=== PATIENT | female | born 1990 | race Caucasian/White ===

== ENCOUNTER 2018-01-24 21:00 | Inpatient (IN) | payer MEDICAID ==
[2018-01-24] MEDS ORDERED: buPROPion 150 MG Tab.SR PO SCH (23:45)
[2018-01-25] MEDS ORDERED: Acetaminophen 325 MG Tab PO PRN (00:01)
[2018-01-25] MEDS ORDERED: Nalbuphine 20 MG/1 ML Amp IVPUSH PRN (00:01)
[2018-01-25] MEDS ORDERED: Ondansetron 4 MG/2 ML SDV IVPUSH PRN (00:01)
[2018-01-25] MEDS ORDERED: Sodium Chloride 0.9% 10 ML Syringe FLUSH PRN (00:01)
[2018-01-25] MEDS ORDERED: Oxytocin/Lactated Ringers 10 UNIT/1,000 ML BAG IV SCH ×3 (00:01→10:53)
--- NOTE | 2018-01-25 00:10 | PCM.LDHP ---
L&D History of Present Illness - General Date of Service: 01/24/18 Admit Problem/Dx: Patient Status Order with Admit Dx/Problem 01/24/18 22:47 Patient Status [ADT] Routine Admission Diagnosis/Problem Admission Diagnosis/Problem Spontaneous rupture of amniotic membranes Source of Information: Patient History Limitations: Reports: No Limitations - History of Present Illness Introduction:: Mariel Costello is a 27 year old at 38 weeks 4 days by 7 week U/S who presents for evaluation for possible rupture of membranes. She reports that she had a large gush of fluid when she was walking around [facility] at approximately 2 PM. She reports that it was enough that she had to change her clothing and then changed her underwear several times as the fluid continued to leak. She reported that she would go to the bathroom and would void but even despite emptying her bladder she continued to have leaking of fluid. She reports that she has had irregular contractions with only several contractions since she thinks that her water broke this afternoon. She has had several episodes of regular contractions that were determined to be false labor over the last several days. She was last seen on the unit on 01/23/2018 and was told that her cervix was dilated to 2 cm at that visits. She reports good movement. She denies any fevers or chills. Denies any abdominal tenderness. Timing/Duration: Reports: sudden onset (With large gush of fluid vaginally), intermittent (Contractions but not regular or able to time between contractions) Location, : Reports: Lower back Quality: Reports: Pressure Severity: Mild Improves with: Reports: None Worsens with: Reports: None Associated Symptoms: Reports: vaginal fluid, large amount. Denies: vaginal bleeding, vaginal discharge Present Illness Comments:: Mariel Costello is a 27 year old at 38 weeks 4 days by 7 week ultrasound. She has had routine care with Dr. Yusuf since 21 weeks gestational age when she had transferred care from outside facility. Review of her labs show A- blood type with negative antibody screen at her initial lab on 11/21/2017. Her RPR, hepatitis B surface antigen and HIV tests were all negative. Gonorrhea and chlamydia tests were negative in May 2017. Her 1 hour glucose test was elevated at 139 and her 3 hour glucose test was normal. Her hemoglobin was 13.8 and platelets of 153 on 2017. Her GBS swab was negative. Her has been complicated by Rh- status and with receiving RhoGAM at approximately 29 weeks gestational age, tobacco use in with current bupropion use for smoking cessation and history of abnormal Pap smear. She received TDaP injection on 11/21/2017. - Related Data Allergies/Adverse Reactions: Allergies Allergy/AdvReac Type Severity Reaction Status Date / Time No Known Allergies Allergy Verified 01/23/18 16:05 Past Medical History HEENT History: Reports: Other (See Below) Other HEENT History: Dental abscess in : 3 Para: 2 Other OB/BYN History: History of abnormal Pap smear with cryotherapy Social & Family History - Tobacco Use Smoking Status *Q: Current Every Day Smoker Tobacco Use Within Last Twelve Months: Cigarettes Years of Tobacco use: 10 Packs/Tins Daily: 0.5 Smoking Cessation Information Provided To Patient: Yes - Tobacco Core Measures Tobacco Use/Smoking Within Last 30 Days: Yes Smoking Frequency Within Last 30 Days: Reports: Five or More Cigarettes Per Day Desires Tobacco Cessation Medication: Yes Desired Tobacco Cessation Medication: Patient currently using Zyban for smoking cessation - Alcohol Use Alcohol Use History: No - Recreational Drug Use Recreational Drug Use: No Drug Use in Last 12 Months: No H&P Review of Systems - Review of Systems: Review Of Systems: See Below General: Denies: Fever, Chills, Malaise, Fatigue HEENT: Denies: Headaches, Post Nasal Drip, Sinus Congestion, Sore Throat, Visual Changes Pulmonary: Denies: Shortness of Breath, Wheezing, Cough Cardiovascular: Denies: Chest Pain, Palpitations Gastrointestinal: Denies: Abdominal Pain, Constipation, Diarrhea, Nausea, Vomiting Genitourinary: Reports: Other (vaginal leaking of fluid). Denies: Dysuria, Frequency, Burning, Pain, Urgency Musculoskeletal: Reports: Back Pain, Other (abdominal pain and cramping) Skin: Denies: Rash, Lesions Psychiatric: Denies: Depression, Anxiety Hematologic/Lymphatic: Denies: Anemia L&D Exam - Exam Exam: See Below - OB Specific Contraction Duration (sec): 0 Contraction Frequency (min): Irritability Contraction Intensity: Mild Movement: Active Heart Tones: Present Heart Tones per Min: 125 (+15 x 15 accelerations, no decelerations) Heart Rate (FHR) Variability: Moderate (6-25 bmp) Presentation: Vertex Estimated Weight: 7.5-8 pounds by Ton's - Parham Score Parham Score Cervix Position: Midposition Parham Score Consistency: Medium Parham Score Effacement: >80% (80%) Parham Score Dilation: 3-4 cm (3 cm) Parham Score Infant's Station: -3 (-5) Parham Score Total: 7 - Exam General: Alert, Oriented HEENT: Conjunctiva Clear, EOMI Neck: Supple, Trachea Midline Lungs: Clear to Auscultation, Normal Respiratory Effort Cardiovascular: Regular Rate, Regular Rhythm GI/Abdominal Exam: Soft, Non-Tender, No Distention, Other (gravid). No: Guarding, Rigid, Rebound Genitourinary: Normal external exam Back Exam: Normal Inspection, Full Range of Motion Extremities: Normal Inspection, No Pedal Edema Skin: Warm, Dry, Intact Psychiatric: Alert, Normal Affect, Normal Mood - Patient Data Lab Results Last 24 hrs: Laboratory Results - last 24 hr 01/24/18 Range/Units 22:30 Membrane Rupture Positive H - Problem List (1) 38 weeks gestation of SNOMED Code(s): 22246399 ICD Code: Z3A.38 - 38 WEEKS GESTATION OF Status: Acute Current Visit: Yes (2) Rupture of membranes with clear amniotic fluid SNOMED Code(s): 35649636, 147331968 ICD Code: YNB0553 - Status: Acute Current Visit: Yes (3) Tobacco use complicating SNOMED Code(s): 634019538, 224216933 ICD Code: O99.330 - SMOKING (TOBACCO) COMPLICATING , UNSP TRIMESTER Status: Acute Current Visit: Yes Problem List Initiated/Reviewed/Updated: Yes Orders Last 24hrs: Active Orders 24 hr Category Date Time Status Patient Status Manage Transfer [TRANSFER] Routine ADT 01/24/18 23:39 Active Patient Status [ADT] Routine ADT 01/24/18 22:47 Active Non Stress Test [RC] PER UNIT ROUTINE Care 01/24/18 22:47 Active Vital Signs [RC] PER UNIT ROUTINE Care 01/24/18 22:47 Active buPROPion [Wellbutrin SR] Med 01/24/18 23:45 Active 150 mg PO BID Resuscitation Status Routine Resus Stat 01/24/18 22:47 Ordered Medication Orders Bupropion HCl (Wellbutrin Sr) 150 mg PO BID [facility] Assessment/Plan Comment:: Refer to observation for spontaneous rupture of membranes Start Pitocin for augmentation of labor secondary to delay of contractions with spontaneous rupture membranes Continuous monitoring Place IV and have Lactated Ringer's at 125 ml/hr May have small amounts of regular diet Activity as tolerated May have epidural as desired Plans to breast-feed after delivery Anticipate vaginal delivery unless otherwise indicated Jose Sheppard M.D. 11:59 PM 01/24/2018
[2018-01-25] MEDS: Lactated Ringers 1,000 ML IV SCH ×3 (00:12→06:56)
[2018-01-25] MEDS ORDERED: Bupivacaine 0.25% 10 ML SDV ONE (02:00)
[2018-01-25] MEDS ORDERED: fentaNYL 100 MCG/2 ML SDV EPIDUR PRN (02:43)
[2018-01-25] MEDS ORDERED: diphenhydrAMINE 50 MG/ML SDV IVPUSH PRN (02:43)
[2018-01-25] MEDS ORDERED: ePHEDrine 50 MG/ML SDV IVPUSH PRN (02:43)
[2018-01-25] MEDS ORDERED: Bupivacaine/fentaNYL/NS 100 ML Bag EPIDUR SCH (02:45)
--- NOTE | 2018-01-25 03:21 | PCM.PREANE ---
Preanesthetic Assessment - Anesthesia/Transfusion/Family Hx Anesthesia History: Prior Anesthesia Without Reaction Family History of Anesthesia Reaction: No Transfusion History: No Prior Transfusion(s) - Review of Systems General: No Symptoms Pulmonary: No Symptoms Cardiovascular: No Symptoms Gastrointestinal: Abdominal Pain (labor contractions) Neurological: No Symptoms Other: Reports: None - Physical Assessment Pulse: 69 O2 Sat by Pulse Oximetry: 100 Respiratory Rate: 18 Blood Pressure: 122/69 Temperature: 36.6 C Height: 1.7 m Weight: 102.512 kg ASA Class: 2 Mental Status: Alert & Oriented x3 Airway Class: Mallampati = 1 Dentition: Reports: Normal Dentition Thyro-Mental Finger Breadths: 3 Mouth Opening Finger Breadths: 3 ROM/Head Extension: Full Lungs: Clear to Auscultation, Normal Respiratory Effort Cardiovascular: Regular Rate, Regular Rhythm - Lab Values: Laboratory Last Values WBC 13.11 K/mm3 (3.98-10.04) H 01/25/18 00:10 RBC 4.18 M/mm3 (3.98-5.22) 01/25/18 00:10 Hgb 13.1 gm/L (11.2-15.7) 01/25/18 00:10 Hct 39.2 % (34.1-44.9) 01/25/18 00:10 MCV 93.8 fl (79.4-94.8) 01/25/18 00:10 MCH 31.3 pg (25.6-32.2) 01/25/18 00:10 MCHC 33.4 g/dl (32.2-35.5) 01/25/18 00:10 RDW Std Deviation 45.7 fL (36.4-46.3) 01/25/18 00:10 Plt Count 142 K/mm3 (182-369) L 01/25/18 00:10 MPV 13.2 fl (9.4-12.3) H 01/25/18 00:10 Membrane Rupture Positive H 01/24/18 22:30 - Allergies Allergies/Adverse Reactions: Allergies Allergy/AdvReac Type Severity Reaction Status Date / Time No Known Allergies Allergy Verified 01/23/18 16:05 - Anesthesia Plan Pre-Op Medication Ordered: None - Acknowledgements Anesthesia Type Planned: Epidural Pt an Appropriate Candidate for the Planned Anesthesia: Yes Alternatives and Risks of Anesthesia Discussed w Pt/Guardian: Yes Pt/Guardian Understands and Agrees with Anesthesia Plan: Yes PreAnesthesia Questionnaire HEENT History: Reports: Other (See Below) Other HEENT History: Dental abscess in Gastrointestinal History: Reports: GERD CLOTH SPONGER History: Reports: , Other (See Below) Other OB/BYN History: History of abnormal Pap smear with cryotherapy - SUBSTANCE USE Smoking Status *Q: Current Every Day Smoker Tobacco Use Within Last Twelve Months: Cigarettes Second Hand Smoke Exposure: No Recreational Drug Use History: No - CURRENT (IN HOUSE) MEDS Current Meds: Current Medications Acetaminophen (Tylenol) 650 mg PO Q6H PRN PRN Reason: Pain (Mild 1-3) and fever Bupropion HCl (Wellbutrin Sr) 150 mg PO BID BOO Diphenhydramine HCl (Benadryl) 25 mg IVPUSH Q6H PRN PRN Reason: Itching Ephedrine Sulfate (Ephedrine Sulfate) 5 mg IVPUSH ASDIRECTED PRN PRN Reason: HYPOTENTSION Fentanyl (Sublimaze) 100 mcg EPIDUR Q3H PRN PRN Reason: Pain Last Admin: 01/25/18 03:12 Dose: 100 mcg Fentanyl/Bupivacaine HCl (Fentanyl/Bupivacaine/Ns 2 Mcg-0.125% 100 Ml) 100 ml EPIDUR ASDIRECTED BOO Last Admin: 01/25/18 03:12 Dose: 100 ml Lactated Ringer's (Ringers, Lactated) 1,000 mls @ 100 mls/hr IV ASDIRECTED BOO Last Infusion: 01/25/18 02:15 Dose: 999 mls/hr Oxytocin/Lactated Ringer's (Pitocin In Lr 10 Units/1,000 Ml) 10 unit in 1,000 mls @ 100 mls/hr IV .CONTINUOUS BOO Oxytocin/Lactated Ringer's (Pitocin In Lr 10 Units/1,000 Ml) 10 unit in 1,000 mls @ 12 mls/hr IV TITRATE BOO; Protocol Last Titration: 01/25/18 02:10 Dose: 6 munits/min, 36 mls/hr Nalbuphine HCl (Nubain) 10 mg IVPUSH Q2H PRN PRN Reason: Pain (moderate 4-6) Ondansetron HCl (Zofran) 4 mg IVPUSH Q4H PRN PRN Reason: Nausea/Vomiting Sodium Chloride (Saline Flush) 10 ml FLUSH ASDIRECTED PRN PRN Reason: Keep Vein Open
[2018-01-25] MEDS ORDERED: Sodium Chloride 0.9% 1,000 ML ONE (05:26)
--- NOTE | 2018-01-25 05:39 | PCM.PNLD ---
Labor Progress Note - VS & Meds Vital Signs: Last Vital Signs Temp 36.6 C 01/25/18 03:21 Pulse 69 01/25/18 03:21 Resp 18 01/25/18 03:21 BP 122/69 01/25/18 03:21 Pulse Ox 100 01/25/18 03:21 Active Medications: Current Medications Acetaminophen (Tylenol) 650 mg PO Q6H PRN PRN Reason: Pain (Mild 1-3) and fever Bupropion HCl (Wellbutrin Sr) 150 mg PO BID BOO Diphenhydramine HCl (Benadryl) 25 mg IVPUSH Q6H PRN PRN Reason: Itching Ephedrine Sulfate (Ephedrine Sulfate) 5 mg IVPUSH ASDIRECTED PRN PRN Reason: HYPOTENTSION Fentanyl (Sublimaze) 100 mcg EPIDUR Q3H PRN PRN Reason: Pain Last Admin: 01/25/18 03:12 Dose: 100 mcg Fentanyl/Bupivacaine HCl (Fentanyl/Bupivacaine/Ns 2 Mcg-0.125% 100 Ml) 100 ml EPIDUR ASDIRECTED BOO Last Admin: 01/25/18 03:12 Dose: 100 ml Lactated Ringer's (Ringers, Lactated) 1,000 mls @ 100 mls/hr IV ASDIRECTED BOO Last Admin: 01/25/18 03:21 Dose: 999 mls/hr Oxytocin/Lactated Ringer's (Pitocin In Lr 10 Units/1,000 Ml) 10 unit in 1,000 mls @ 100 mls/hr IV .CONTINUOUS BOO Oxytocin/Lactated Ringer's (Pitocin In Lr 10 Units/1,000 Ml) 10 unit in 1,000 mls @ 12 mls/hr IV TITRATE BOO; Protocol Last Titration: 01/25/18 04:08 Dose: 4 munits/min, 24 mls/hr Nalbuphine HCl (Nubain) 10 mg IVPUSH Q2H PRN PRN Reason: Pain (moderate 4-6) Ondansetron HCl (Zofran) 4 mg IVPUSH Q4H PRN PRN Reason: Nausea/Vomiting Sodium Chloride (Saline Flush) 10 ml FLUSH ASDIRECTED PRN PRN Reason: Keep Vein Open Discontinued Medications Sodium Chloride (Normal Saline) Confirm Administered Dose 1,000 mls @ as directed .ROUTE .STK-MED ONE Stop: 01/25/18 05:27 - Uterine Contractions Uterine Monitoring Mode: External [place] Contraction Frequency (min): 5-6 Contraction Duration (sec): 40-50 Contraction Intensity: Moderate Uterine Resting Tone: Soft - Monitoring Monitor Mode: Doppler/Auscultation Heart Rate (FHR) Baseline: 130 Heart Rate (FHR) Variability: Moderate (6-25 bmp) Accelerations: Present, 15x15 Decelerations: Variable, Recurrent (>50% x 20 min) Strip Review: Category II - Vaginal Exam Dilation (cm): 3 Effacement (Percent): 70 Station: -3 Cervical Position: Anterior - Labor Progress (Free Text) Labor Progress: Discussed with patient that she has been having recurrent variable decelerations with pitocin augmentation running and only getting up to a rate of 6. Discussed that we can try to prevent these decelerations with use of amnioinfusion. Discussed risks and benefits with the patient and she agreed to have procedure performed. Cervical exam was 3/70/-3/soft/anterior with a forebag present. Patient had artificial rupture of membranes of a forebag during her cervical examination with return of blood stained fluid. An intrauterine pressure catheter was placed without difficulty. Amnioinfusion started with normal saline with initial bolus of 200 ml at a rate of 100 ml/hr then will run at a rate of 50 ml/hr after initial bolus. Mom and baby tolerated procedure without difficulty.
[2018-01-25] MEDS ORDERED: Nalbuphine 20 MG/ML 1 ML Syringe IVPUSH PRN (10:00)
--- NOTE | 2018-01-25 10:20 | PCM.DEL ---
L & D Note - General Info Date of Service: 01/25/18 Mother's Due Date: 02/02/18 - Delivery Note Labor: Augmented by ARM, Augmented by Oxytocin Delivery Outcome: Livebirth Delivery Method: Spontaneous Vaginal Delivery-Single Presentation: Right Occiput Anterior (SAMIA) Nuchal Cord: None Anesthesia Type: Epidural Amniotic Fluid Description: Clear Episiotomy Type: None Laceration: Periurethral (abrasions not repaired and were hemostatic) Placenta: Intact, Spontaneous Cord: 3 Vessels Estimated Blood Loss: 150 [place]: Bulb Syringe, Stimulated, Warmed, [place] Used Provider: Gisselle Yusuf Score 1 min: 8 Score 5 min: 9 Second Stage Interventions: Reports: Pushing Effectively, Pushing, Pulls Own Legs Back, Pushing, Stirrups/Leg Supports Delivery Comments (Free Text/Narrative):: Stage I: Mariel Costello was admitted for spontaneous rupture membranes without labor. On admission her cervix was dilated to 2 cm. She was GBS negative. She was started on Pitocin for augmentation of labor given she had been ruptured for approximately 9 hours without initiation of contractions. She was given an epidural for anesthesia. She was having recurrent variable decelerations with contractions and an intrauterine pressure catheter was placed without difficulty for amnioinfusion. The amnioinfusion helped to decrease the number of variable decelerations and Pitocin was continued for augmentation of labor. She progressed to complete and pushing. Stage II: On 01/25/2018 she had a normal vaginal delivery of a live male at 0958. Apgars of 8 & 9. Weight of 3420 g (7 lbs 8.6 oz). Length of 20 inches. There was no nuchal cord. was delivered in SAMIA position. The cord was doubly clamped and cut by myself. was placed on mother's abdomen. Stage III: She had a spontaneous delivery of an intact placenta in Peter presentation. Three vessel cord. She was given pitocin and fundal massage. She had bilateral periurethral abrasions that were hemostatic and not repaired. Mom and baby were stable to recovery. EBL of 150 mL. Jose Sheppard MD 10:28 AM 01/25/2018 - General Info Date of Service: 01/25/18 - Patient Data Vitals - Most Recent: Last Vital Signs Temp 36.3 C 01/25/18 03:30 Pulse 94 01/25/18 03:30 Resp 16 01/25/18 03:30 BP 123/61 01/25/18 03:30 Pulse Ox 99 01/25/18 03:30 Weight - Most Recent: 102.512 kg I&O - Last 24 Hours: Intake & Output 01/24/18 01/25/18 01/25/18 22:59 06:59 14:59 Intake Total 1999 Balance 1999 Lab Results Last 24 Hours: Laboratory Results - last 24 hr 01/24/18 01/25/18 Range/Units 22:30 00:10 WBC 13.11 H (3.98-10.04) K/mm3 RBC 4.18 (3.98-5.22) M/mm3 Hgb 13.1 (11.2-15.7) gm/L Hct 39.2 (34.1-44.9) % MCV 93.8 (79.4-94.8) fl MCH 31.3 (25.6-32.2) pg MCHC 33.4 (32.2-35.5) g/dl RDW Std Deviation 45.7 (36.4-46.3) fL Plt Count 142 L (182-369) K/mm3 MPV 13.2 H (9.4-12.3) fl Membrane Rupture Positive H Med Orders - Current: Current Medications Acetaminophen (Tylenol) 650 mg PO Q6H PRN PRN Reason: Pain (Mild 1-3) and fever Last Admin: 01/25/18 06:52 Dose: 650 mg Bupropion HCl (Wellbutrin Sr) 150 mg PO BID BOO Diphenhydramine HCl (Benadryl) 25 mg IVPUSH Q6H PRN PRN Reason: Itching Ephedrine Sulfate (Ephedrine Sulfate) 5 mg IVPUSH ASDIRECTED PRN PRN Reason: HYPOTENTSION Fentanyl (Sublimaze) 100 mcg EPIDUR Q3H PRN PRN Reason: Pain Last Admin: 01/25/18 03:12 Dose: 100 mcg Fentanyl/Bupivacaine HCl (Fentanyl/Bupivacaine/Ns 2 Mcg-0.125% 100 Ml) 100 ml EPIDUR ASDIRECTED BOO Last Admin: 01/25/18 03:12 Dose: 100 ml Lactated Ringer's (Ringers, Lactated) 1,000 mls @ 100 mls/hr IV ASDIRECTED BOO Last Admin: 01/25/18 06:56 Dose: 999 mls/hr Oxytocin/Lactated Ringer's (Pitocin In Lr 10 Units/1,000 Ml) 10 unit in 1,000 mls @ 100 mls/hr IV .CONTINUOUS BOO Oxytocin/Lactated Ringer's (Pitocin In Lr 10 Units/1,000 Ml) 10 unit in 1,000 mls @ 12 mls/hr IV TITRATE BOO; Protocol Last Titration: 01/25/18 08:15 Dose: 4 munits/min, 24 mls/hr Nalbuphine HCl (Nubain) 10 mg IVPUSH Q2H PRN PRN Reason: Pain (moderate 4-6) Ondansetron HCl (Zofran) 4 mg IVPUSH Q4H PRN PRN Reason: Nausea/Vomiting Sodium Chloride (Saline Flush) 10 ml FLUSH ASDIRECTED PRN PRN Reason: Keep Vein Open Discontinued Medications Sodium Chloride (Normal Saline) Confirm Administered Dose 1,000 mls @ as directed .ROUTE .STK-MED ONE Stop: 01/25/18 05:27 Last Admin: 01/25/18 06:26 Dose: 100 mls/hr Nalbuphine HCl (Nubain) 10 mg IVPUSH Q2H PRN PRN Reason: Pain (moderate 4-6) - Problem List & Annotations (1) 38 weeks gestation of SNOMED Code(s): 77179640 Code(s): Z3A.38 - 38 WEEKS GESTATION OF Status: Acute Current Visit: Yes (2) Rupture of membranes with clear amniotic fluid SNOMED Code(s): 25015983, 240312554 Code(s): SYT6524 - Status: Acute Current Visit: Yes (3) Tobacco use complicating SNOMED Code(s): 239331306, 131978068 Code(s): O99.330 - SMOKING (TOBACCO) COMPLICATING , UNSP TRIMESTER Status: Acute Current Visit: Yes (4) Vaginal delivery SNOMED Code(s): 951980673 Code(s): O80 - ENCOUNTER FOR FULL-TERM UNCOMPLICATED DELIVERY Status: Acute Current Visit: Yes - Problem List Review Problem List Initiated/Reviewed/Updated: Yes - My Orders Last 24 Hours: My Active Orders 01/24/18 22:47 Non Stress Test [RC] PER UNIT ROUTINE Vital Signs [RC] PER UNIT ROUTINE Resuscitation Status Routine 01/24/18 23:45 buPROPion [Wellbutrin SR] 150 mg PO BID 01/25/18 00:01 Patient Status [ADT] Routine Activity as Tolerated [RC] PFP Communication Order [RC] ASDIRECTED Heart Tones [RC] ASDIRECTED Notify Provider Vital Signs [RC] PRN Notify Provider [RC] PFP Notify Provider [RC] PRN Peripheral IV Care [RC] . DIRECTED Urinary Catheter Assessment [RC] ASDIRECTED Vital Signs [RC] PER UNIT ROUTINE Acetaminophen [Tylenol] 650 mg PO Q6H PRN Lactated Ringers [Ringers, Lactated] 1,000 ml IV ASDIRECTED Ondansetron [Zofran] 4 mg IVPUSH Q4H PRN Oxytocin/Lactated Ringers [Pitocin in LR 10 Units/1,000 ML] 10 unit in 1,000 ml IV .CONTINUOUS Oxytocin/Lactated Ringers [Pitocin in LR 10 Units/1,000 ML] 10 unit in 1,000 ml IV TITRATE Sodium Chloride 0.9% [Saline Flush] 10 ml FLUSH ASDIRECTED PRN Electronic Heart Tones Ext w TOCO [WOMSER] Routine Electronic Heart Tones Internal [WOMSER] Per Unit Routine Peripheral IV Insertion Adult [OM.PC] Routine 01/25/18 00:10 RAPID PLASMA REAGIN,RPR [CHEM] Routine 01/25/18 05:29 Communication Order [RC] ROUTINE 01/25/18 10:00 Nalbuphine [Nubain] 10 mg IVPUSH Q2H PRN 01/25/18 10:09 Patient Status Manage Transfer [TRANSFER] Routine 01/25/18 Dinner Regular Diet [DIET] - Plan Plan:: Admit to inpatient following [normal] [spontaneous] vaginal delivery Continue Pitocin per unit protocol following delivery of placenta and lactated Ringer's until tolerating regular diet [Regular] diet Vitals per unit routine Ibuprofen and Tylenol for pain control Assist with [breast-feeding] as needed Continue to monitor lochia Anticipate discharge home on day [#1] Jose Sheppard MD 10:29 AM 01/25/2018
[2018-01-25] MEDS ORDERED: Prenatal Multivitamin with Calcium/Folic Acid/Iron Tab PO SCH (10:53)
[2018-01-25] MEDS ORDERED: Hydrocortisone Acetate 25 MG Supp RECTAL PRN (10:53)
[2018-01-25] MEDS ORDERED: Benzocaine/Menthol 20%-0.5% Spray 56 GM Canister TOP PRN (10:53)
[2018-01-25] MEDS ORDERED: Lanolin 100% Cream 7 GM Tube TOP PRN (10:53)
[2018-01-25] MEDS ORDERED: Witch Hazel Medicated Pads 100/Jar TOP PRN (10:53)
[2018-01-25] MEDS ORDERED: Docusate Sodium 100 MG Cap PO PRN (10:53)
[2018-01-25] MEDS ORDERED: Magnesium Hydroxide 400 MG/5 ML Susp 30 ML Cup PO PRN (10:53)
[2018-01-25] MEDS: Ibuprofen 600 MG Tab PO PRN ×3 (11:14→23:45)
[2018-01-25] MEDS: Acetaminophen 325 MG Tab PO PRN (19:30)
[2018-01-26] MEDS: Ibuprofen 600 MG Tab PO PRN (06:14)
[2018-01-26] MEDS: Acetaminophen 325 MG Tab PO PRN (08:25)
--- NOTE | 2018-01-26 09:35 | PCM48HPAN ---
Post Anesthesia Note - EVALUATION WITHIN 48HRS OF ANESTHETIC Vital Signs in Normal Range: Yes Patient Participated in Evaluation: Yes Respiratory Function Stable: Yes Airway Patent: Yes Cardiovascular Function Stable: Yes Hydration Status Stable: Yes Pain Control Satisfactory: Yes Nausea and Vomiting Control Satisfactory: Yes Mental Status Recovered: Yes Pulse Rate: 80 Resp Rate: 14 Temperature: 36.5 C Blood Pressure: 128/79 - COMMENTS/OBSERVATIONS Free Text/Narrative:: no anesthesia complications noted
--- NOTE | 2018-01-26 09:57 | PCM.SN ---
- Free Text/Narrative Note: Post Progress Note PPD #1 Subjective: Doing well overall. Ambulating without difficulty. Lochia minimal. Voiding without difficulty. Tolerating regular diet without nausea or vomiting. Pain controlled with oral medications. Breast feeding with minimal difficulty. Objective: Vitals: Vital Signs - 24 hr 01/25/18 01/25/18 01/26/18 16:15 21:25 04:03 Temperature 36.7 C 36.5 C Temperature [ 36.6 C Temporal] Pulse, 93 88 80 Peripheral Respiratory 15 16 15 Rate Blood Pressure 130/73 138/74 139/63 O2 Sat by Pulse 98 98 98 Oximetry 01/26/18 01/26/18 08:29 09:35 Temperature 36.5 C 36.5 C Temperature [ Temporal] Pulse, 80 80 Peripheral Respiratory 14 14 Rate Blood Pressure 128/79 128/79 O2 Sat by Pulse 99 Oximetry Physical Exam General: Alert and oriented, no acute distress Lungs: Clear to auscultation bilaterally Heart: Regular rate and rhythm Abdomen: Soft, minimal appropriate tenderness, non-distended, fundus midline, nontender, and below the umbilicus Extremities: Trace edema in bilateral lower legs to mid shins Laboratory Tests 01/24/18 01/25/18 01/25/18 Range/Units 22:30 00:10 00:10 WBC 13.11 H (3.98-10.04) K/mm3 RBC 4.18 (3.98-5.22) M/mm3 Hgb 13.1 (11.2-15.7) gm/L Hct 39.2 (34.1-44.9) % MCV 93.8 (79.4-94.8) fl MCH 31.3 (25.6-32.2) pg MCHC 33.4 (32.2-35.5) g/dl RDW Std Deviation 45.7 (36.4-46.3) fL Plt Count 142 L (182-369) K/mm3 MPV 13.2 H (9.4-12.3) fl Membrane Rupture Positive H RPR Non-reactive (NONREACTIVE) ASSESSMENT: 27-year-old female G 3 P 3003 s/p normal vaginal delivery PPD #1, complicated by Rh- status, tobacco use in and history of abnormal Pap smear PLAN: Doing well Breast feeding with minimal difficulty. Assist as needed Lochia minimal. Continue to monitor for appropriate lochia. Continue routine care Infant has O- blood type, mother-baby has A- blood type and RhoGAM is not indicated due to Rh- blood type for Anticipate discharge home today Jose Sheppard MD 9:56 AM 01/26/2018
--- NOTE | 2018-01-26 10:17 | PCM.DCSUM1 ---
Discharge Summary - Hospital Course Free Text/Narrative:: Stage I: Mariel Costello was admitted for spontaneous rupture membranes without labor. On admission her cervix was dilated to 2 cm. She was GBS negative. She was started on Pitocin for augmentation of labor given she had been ruptured for approximately 9 hours without initiation of contractions. She was given an epidural for anesthesia. She was having recurrent variable decelerations with contractions and an intrauterine pressure catheter was placed without difficulty for amnioinfusion. The amnioinfusion helped to decrease the number of variable decelerations and Pitocin was continued for augmentation of labor. She progressed to complete and pushing. Stage II: On 01/25/2018 she had a normal vaginal delivery of a live male at 0958. Apgars of 8 & 9. Weight of 3420 g (7 lbs 8.6 oz). Length of 20 inches. There was no nuchal cord. was delivered in SAMIA position. The cord was doubly clamped and cut by myself. was placed on mother's abdomen. Stage III: She had a spontaneous delivery of an intact placenta in Peter presentation. Three vessel cord. She was given pitocin and fundal massage. She had bilateral periurethral abrasions that were hemostatic and not repaired. Mom and baby were stable to recovery. EBL of 150 mL. HPI Initial Comments: Stage I: Mariel Costello was admitted for spontaneous rupture membranes without labor. On admission her cervix was dilated to 2 cm. She was GBS negative. She was started on Pitocin for augmentation of labor given she had been ruptured for approximately 9 hours without initiation of contractions. She was given an epidural for anesthesia. She was having recurrent variable decelerations with contractions and an intrauterine pressure catheter was placed without difficulty for amnioinfusion. The amnioinfusion helped to decrease the number of variable decelerations and Pitocin was continued for augmentation of labor. She progressed to complete and pushing. Stage II: On 01/25/2018 she had a normal vaginal delivery of a live male at 0958. Apgars of 8 & 9. Weight of 3420 g (7 lbs 8.6 oz). Length of 20 inches. There was no nuchal cord. was delivered in SAMIA position. The cord was doubly clamped and cut by myself. was placed on mother's abdomen. Stage III: She had a spontaneous delivery of an intact placenta in Peter presentation. Three vessel cord. She was given pitocin and fundal massage. She had bilateral periurethral abrasions that were hemostatic and not repaired. Mom and baby were stable to recovery. EBL of 150 mL. Brief History: Stage I: Mariel Costello was admitted for spontaneous rupture membranes without labor. On admission her cervix was dilated to 2 cm. She was GBS negative. She was started on Pitocin for augmentation of labor given she had been ruptured for approximately 9 hours without initiation of contractions. She was given an epidural for anesthesia. She was having recurrent variable decelerations with contractions and an intrauterine pressure catheter was placed without difficulty for amnioinfusion. The amnioinfusion helped to decrease the number of variable decelerations and Pitocin was continued for augmentation of labor. She progressed to complete and pushing. Stage II: On she had a normal vaginal delivery of a live male infant at 0958. Apgars of 8 & 9. Weight of 3420 g (7 lbs 8.6 oz). Length of 20 inches. There was no nuchal cord. was delivered in SAMIA position. The cord was doubly clamped and cut by myself. was placed on mother's abdomen. Stage III: She had a spontaneous delivery of an intact placenta in Peter presentation. Three vessel cord. She was given pitocin and fundal massage. She had bilateral periurethral abrasions that were hemostatic and not repaired. Mom and baby were stable to recovery. EBL of 150 mL. Diagnosis: Stroke: No - Discharge Data Discharge Date: 01/26/18 Discharge Disposition: Home, Self-Care 01 Condition: Good - Discharge Diagnosis/Problem(s) (1) 38 weeks gestation of SNOMED Code(s): 73211150 ICD Code: Z3A.38 - 38 WEEKS GESTATION OF Status: Acute Current Visit: Yes (2) Rupture of membranes with clear amniotic fluid SNOMED Code(s): 50303261, 125061818 ICD Code: SBO0645 - Status: Acute Current Visit: Yes (3) Tobacco use complicating SNOMED Code(s): 730857688, 318409479 ICD Code: O99.330 - SMOKING (TOBACCO) COMPLICATING , UNSP TRIMESTER Status: Acute Current Visit: Yes (4) Vaginal delivery SNOMED Code(s): 260295774 ICD Code: O80 - ENCOUNTER FOR FULL-TERM UNCOMPLICATED DELIVERY Status: Acute Current Visit: Yes - Patient Summary/Data Complications: None Consults: None Hospital Course: Mariel Costello was admitted for prelabor spontaneous rupture of membranes. On admission her cervix was dilated to 2 cm. She was GBS negative. She was given pitocin for augmentation. [She was given an epidural for anesthesia.] She had recurrent variable decelerations believed to be secondary to loss of amniotic fluid with rupture of membranes. An intrauterine pressure catheter was placed and amnioinfusion started which resolved the variable decelerations. She is continued on Pitocin for augmentation of her labor. She progressed to complete and began pushing. On 01/25/2018 she had a normal vaginal delivery of a [live] male infant at 0958. Apgars of 8 and 9. Weight of 3420 g (7 pounds 8.6 ounces). Her course was uneventful. Her pain was well controlled and she had minimal lochia. She was ambulating, tolerating a regular diet and voiding normally. She was breast feeding. She was afebrile and her hematocrit was 39.2 on admission. She desired to be discharged home on the morning of PPD #1. Her blood type is A- but the 's blood type was O- and RhoGAM was not indicated. - Patient Instructions Diet: Regular Diet as Tolerated Activity: Apply Ice, As Tolerated Activity, Other: Nothing in the vagina for 6 weeks Driving: May Drive Today Showering/Bathing: May Shower Notify Provider of: Fever, Increased Pain, Swelling and Redness, Drainage, Nausea and/or Vomiting Other/Special Instructions: Please contact your physician's office if you have heavy vaginal bleeding enough to soak a pad in less than an hour for several hours. - Discharge Plan *PRESCRIPTION DRUG MONITORING PROGRAM REVIEWED*: Not Applicable *COPY OF PRESCRIPTION DRUG MONITORING REPORT IN PATIENT ALLAN: Not Applicable Home Medications: Home Meds Acetaminophen [Tylenol] 650 mg PO Q6H PRN tablet 01/26/18 [Rx] Benzocaine/Menthol [Dermoplast Pain Relief [place]] 1 spray TOP ASDIRECTED PRN canister 01/26/18 [Rx] Docusate Sodium [Colace] 100 mg PO BID PRN cap 01/26/18 [Rx] Hydrocortisone Acetate [Anucort-HC] 25 mg RECTAL BID PRN supp 01/26/18 [Rx] Ibuprofen [Motrin] 600 mg PO Q6H PRN tablet 01/26/18 [Rx] Lanolin [Lansinoh HPA] 1 applic TOP ASDIRECTED PRN tube 01/26/18 [Rx] Vit with Ca/FA/Iron [ Plus Iron] 1 each PO DAILY tablet [Rx] Mariposa Meneses [Tucks] 1 pad TOP ASDIRECTED PRN pad 01/26/18 [Rx] Patient Handouts: Vaginal Delivery, Care After Referrals: Gisselle Yusuf MD [Physician] - (Follow-up in 4-6 weeks for visit or earlier as needed.) - Discharge Summary/Plan Comment DC Time >30 min.: No - Patient Data Vitals - Most Recent: Last Vital Signs Temp 36.5 C 01/26/18 09:35 Pulse 80 01/26/18 09:35 Resp 14 01/26/18 09:35 BP 128/79 01/26/18 09:35 Pulse Ox 99 01/26/18 08:29 Weight - Most Recent: 102.512 kg I&O - Last 24 hours: Intake & Output 01/25/18 01/26/18 01/26/18 22:59 06:59 14:59 Intake Total 500 Balance 500 Lab Results - Last 24 hrs: Laboratory Results - last 24 hr 01/25/18 Range/Units 00:10 RPR Non-reactive (NONREACTIVE) Med Orders - Current: Current Medications Acetaminophen (Tylenol) 650 mg PO Q6H PRN PRN Reason: mild pain or fever Last Admin: 01/26/18 08:25 Dose: 650 mg Benzocaine/Menthol (Dermoplast Pain Relief [place]) 0 gm TOP ASDIRECTED PRN PRN Reason: Perineal Comfort Measure Last Admin: 01/25/18 11:15 Dose: 1 canister Docusate Sodium (Colace) 100 mg PO BID PRN PRN Reason: Constipation Emollient Ointment (Lansinoh Hpa) 0 gm TOP ASDIRECTED PRN PRN Reason: Sore Nipples Hydrocortisone Acetate (Anucort-Hc) 25 mg RECTAL BID PRN PRN Reason: Hemorrhoid pain Oxytocin/Lactated Ringer's (Pitocin In Lr 10 Units/1,000 Ml) 10 unit in 1,000 mls @ 100 mls/hr IV TITRATE BOO; Protocol Ibuprofen (Motrin) 600 mg PO Q6H PRN PRN Reason: Mild pain or fever Last Admin: 01/26/18 06:14 Dose: 600 mg Magnesium Hydroxide (Milk Of Magnesia) 30 ml PO BEDTIME PRN PRN Reason: Constipation Prenat Multivit/Hunting Guide/Iron/Folic Ac ( Plus Iron) 1 each PO DAILY BOO Last Admin: 01/25/18 18:05 Dose: Not Given Mariposa Meneses (Tucks) 1 pad TOP ASDIRECTED PRN PRN Reason: Hemorrhoid pain Last Admin: 01/25/18 11:15 Dose: 1 jar Discontinued Medications Acetaminophen (Tylenol) 650 mg PO Q6H PRN PRN Reason: Pain (Mild 1-3) and fever Last Admin: 01/25/18 06:52 Dose: 650 mg Bupropion HCl (Wellbutrin Sr) 150 mg PO BID BOO Diphenhydramine HCl (Benadryl) 25 mg IVPUSH Q6H PRN PRN Reason: Itching Ephedrine Sulfate (Ephedrine Sulfate) 5 mg IVPUSH ASDIRECTED PRN PRN Reason: HYPOTENTSION Fentanyl (Sublimaze) 100 mcg EPIDUR Q3H PRN PRN Reason: Pain Last Admin: 01/25/18 03:12 Dose: 100 mcg Fentanyl/Bupivacaine HCl (Fentanyl/Bupivacaine/Ns 2 Mcg-0.125% 100 Ml) 100 ml EPIDUR ASDIRECTED BOO Last Admin: 01/25/18 03:12 Dose: 100 ml Lactated Ringer's (Ringers, Lactated) 1,000 mls @ 100 mls/hr IV ASDIRECTED BOO Last Admin: 01/25/18 06:56 Dose: 999 mls/hr Oxytocin/Lactated Ringer's (Pitocin In Lr 10 Units/1,000 Ml) 10 unit in 1,000 mls @ 100 mls/hr IV .CONTINUOUS BOO Last Admin: 01/25/18 10:22 Dose: 100 mls/hr Oxytocin/Lactated Ringer's (Pitocin In Lr 10 Units/1,000 Ml) 10 unit in 1,000 mls @ 12 mls/hr IV TITRATE BOO; Protocol Last Titration: 01/25/18 08:40 Dose: 6 munits/min, 36 mls/hr Sodium Chloride (Normal Saline) Confirm Administered Dose 1,000 mls @ as directed .ROUTE .K-MED ONE Stop: 01/25/18 05:27 Last Admin: 01/25/18 06:26 Dose: 100 mls/hr Nalbuphine HCl (Nubain) 10 mg IVPUSH Q2H PRN PRN Reason: Pain (moderate 4-6) Nalbuphine HCl (Nubain) 10 mg IVPUSH Q2H PRN PRN Reason: Pain (moderate 4-6) Ondansetron HCl (Zofran) 4 mg IVPUSH Q4H PRN PRN Reason: Nausea/Vomiting Sodium Chloride (Saline Flush) 10 ml FLUSH ASDIRECTED PRN PRN Reason: Keep Vein Open
== END 2018-01-26 11:25 | disposition home or self-care (01) | DRG 775 ==
LOC: JD.OB 21:00 → JD.OBCHECK 21:00 → JD.OB 23:39 → OBSVTOIN 01-25 10:09 → JD.OB 01-25 10:10
PROVIDERS: ADMIT Obstetrics & Gynecology; ATTEND Obstetrics & Gynecology
PROC: 3E0E7GC Introduction of Other Therapeutic Substance into Products of Conception, Via Natural or Artificial Opening (ICD-10-PCS; principal; 2018-01-25)
PROC: 10E0XZZ Delivery of Products of Conception, External Approach (ICD-10-PCS; principal; 2018-01-25)
PROC: 10907ZC Drainage of Amniotic Fluid, Therapeutic from Products of Conception, Via Natural or Artificial Opening (ICD-10-PCS; principal; 2018-01-25)
PROC: 10H07YZ Insertion of Other Device into Products of Conception, Via Natural or Artificial Opening (ICD-10-PCS; principal; 2018-01-25)
PROC: 3E0R3BZ Introduction of Anesthetic Agent into Spinal Canal, Percutaneous Approach (ICD-10-PCS; 2018-01-25)
PROC: 00HU33Z Insertion of Infusion Device into Spinal Canal, Percutaneous Approach (ICD-10-PCS; 2018-01-25)
DX: O42.02 Full-term premature rupture of membranes, onset of labor within 24 hours of rupture (principal); Z3A.38 38 weeks gestation of pregnancy; Z37.0 Single live birth; O99.334 Smoking (tobacco) complicating childbirth; F17.210 Nicotine dependence, cigarettes, uncomplicated; O76 Abnormality in fetal heart rate and rhythm complicating labor and delivery
CPT/HCPCS: 36415; 51702; 59025; 59409; 84112; 85027; 86592; A9270-GY; J2590; J3010; J3490; J7040; J7120

== ENCOUNTER 2018-07-13 22:36 | Emergency (ER) | payer MEDICAID ==
[2018-07-13] MEDS ORDERED: Doxycycline 100 MG Cap PO ONE (23:23)
--- NOTE | 2018-07-13 23:43 | EDM.PDOC ---
ED HPI GENERAL MEDICAL PROBLEM - General Chief Complaint: Skin Complaint Stated Complaint: SKIN RASH POSSIBLE SCABIES Time Seen by Provider: 07/13/18 23:15 Source of Information: Reports: Patient, RN Notes Reviewed - History of Present Illness INITIAL COMMENTS - FREE TEXT/NARRATIVE: 28-year-old lady comes in with concern about rash on face and arms and other parts of her body as well. Of these for several weeks, some of the lesions have been present for a longer period of time. She is concerned about scabies. She states a friend of hers also has similar lesions. Her 5-1/2 month-old baby also has a lot of rash but on evaluation found to be eczema. 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 CLINICAL INFORMATICS MANAGER History: History of abnormal Pap smear with cryotherapy Social & Family History - Family History Family Medical History: Noncontributory - Tobacco Use Smoking Status *Q: Current Every Day Smoker Years of Tobacco use: 6 Packs/Tins Daily: 1 - Caffeine Use Caffeine Use: Reports: None - Recreational Drug Use Recreational Drug Use: No ED ROS GENERAL - Review of Systems Review Of Systems: See Below Constitutional: Denies: Fever, Chills HEENT: Denies: Throat Pain Respiratory: Denies: Shortness of Breath, Cough GI/Abdominal: Reports: No Symptoms Skin: Reports: Rash (She has a few lesions on her face, one on the corner of her mouth that won't go away, scattered lesions arms and trunk as well.) Neurological: Reports: No Symptoms ED EXAM, SKIN/RASH Exam: See Below General Appearance: Alert Eye Exam: Bilateral Eye: PERRL Nose: Normal Inspection Throat/Mouth: Normal Inspection Head: No: Facial Swelling Neck: Supple Respiratory/Chest: No Respiratory Distress Skin: Warm, Dry, Rash (She does have a crusted lesion left corner of mouth, a couple of other mildly excoriated lesions over face. Has multiple lesions both arms and shows main a small draining abscess right groin) Course - Vital Signs Last Recorded V/S: Last Vital Signs Temp 97.3 F 07/13/18 22:56 Pulse 90 07/13/18 22:56 Resp 16 07/13/18 22:56 BP 135/91 H 07/13/18 22:56 Pulse Ox 100 07/13/18 22:56 - Orders/Labs/Meds Meds: Medications Discontinued Medications Generic Name Dose Route Start Last Admin Trade Name Levi PRN Reason Stop Dose Admin Doxycycline Hyclate 200 mg 07/13/18 23:23 07/13/18 23:57 Vibramycin PO 07/13/18 23:24 200 mg ONETIME ONE Administration - Re-Assessments/Exams Free Text/Narrative Re-Assessment/Exam: 07/14/18 00:09 The lesion on her face is compatible with impetigo. The other lesions of her face arms and especially right groin all very strongly suggestive for MRSA type folliculitis with small abscess right groin. Departure - Departure Time of Disposition: 23:36 Disposition: Home, Self-Care 01 Condition: Fair Clinical Impression: Impetigo, Folliculitis, Abscess - Discharge Information Prescriptions: Doxycycline [Vibramycin] 100 mg PO BID #30 cap Mupirocin Oint [Bactroban Oint] 22 gm .XX TID #1 tube Instructions: Folliculitis, Impetigo, Adult Referrals: Yanni Jordan NP [Primary Care Provider] - Forms: ED Department Discharge Additional Instructions: The area of infection on your face is what we call impetigo, caused by either a strep or staph type of bacteria. Wash that area with warm soapy water 2-3 times daily and then apply the Bactroban ointment that has been prescribed to be filled tomorrow morning. Doxycycline oral antibiotic 100 mg twice daily for that and for also the other lesions that you have on your arms and other areas of her body. The area of infection in your right groin has turned into a small abscess, warm compresses to that area 3-4 times daily until the infection has totally cleared. Follow-up with your regular medical provider if symptoms not resolving as expected with the above treatment.
== END 2018-07-13 23:55 | disposition home or self-care (01) ==
LOC: JD.ED 22:36
DX: L02.214 Cutaneous abscess of groin (principal); L01.00 Impetigo, unspecified; L73.9 Follicular disorder, unspecified; K21.9 Gastro-esophageal reflux disease without esophagitis; F17.210 Nicotine dependence, cigarettes, uncomplicated
CPT/HCPCS: 99282; A9270

== ENCOUNTER 2018-07-30 21:00 | Emergency (ER) | payer MEDICAID ==
--- NOTE | 2018-07-30 22:02 | EDM.PDOC ---
ED HPI GENERAL MEDICAL PROBLEM - General Chief Complaint: General Stated Complaint: POSS TAPE WORM Time Seen by Provider: 07/30/18 21:08 Source of Information: Reports: Patient History Limitations: Reports: No Limitations - History of Present Illness INITIAL COMMENTS - FREE TEXT/NARRATIVE: 28 y/o female presents to ER with cc she is concerned she has "tap worms in her nose." She state she has been pulling out what appears to be stringy worms. She denies fever, chills, body aches or headache, no nausea or vomiting. She states she has sores on her mouth that won't heal. Onset: Today Onset Date: 07/30/18 Onset Time: 16:00 Duration: Intermittent Location: Reports: Face Severity: Mild Improves with: Reports: None Worsens with: Reports: None Associated Symptoms: Denies: Cough, Fever/Chills, Nausea/Vomiting - Related Data Allergies Allergy/AdvReac Type Severity Reaction Status Date / Time No Known Allergies Allergy Verified 07/30/18 21:33 Home Meds: Home Meds Mupirocin Oint [Bactroban Oint] 22 gm .XX TID #1 tube 07/30/18 [Rx] cephALEXin [Keflex] 500 mg PO Q8H 7 Days #21 cap 07/30/18 [Rx] Past Medical History HEENT History: Reports: Other (See Below) Other HEENT History: Dental abscess in Gastrointestinal History: Reports: GERD 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 Denies: Nosebleed Respiratory: Denies: Shortness of Breath Cardiovascular: Denies: Chest Pain Endocrine: Reports: No Symptoms GI/Abdominal: Reports: No Symptoms, Mucous in Stool Musculoskeletal: Reports: No Symptoms Skin: Reports: Rash (around mouth and nose) Neurological: Reports: No Symptoms Psychiatric: Reports: No Symptoms ED EXAM, GENERAL - Physical Exam Exam: See Below Exam Limited By: No Limitations General Appearance: Alert, WD/WN, No Apparent Distress Nose: Normal Inspection, Normal Mucosa, Nasal Tenderness, Nasal Swelling, Nasal Drainage, Clear Rhinorrhea. No: No Blood, Nasal Deformity, Nasal Flaring Throat/Mouth: Normal Inspection, Normal Lips, Normal Teeth, Normal Gums, Normal Oropharynx, Normal Voice, No Airway Compromise, Other (macular papular honeycrusty rash on outer aspect of lips ) Head: Atraumatic, Normocephalic Neck: Normal Inspection, Supple, Non-Tender, Full Range of Motion Respiratory/Chest: No Respiratory Distress, Lungs Clear, Normal Breath Sounds, No Accessory Muscle Use, Chest Non-Tender Cardiovascular: Normal Peripheral Pulses, Regular Rate, Rhythm, No Gallop, No JVD, No Murmur, No Rub Neurological: Alert, Oriented, CN II-XII Intact, Normal Cognition, Normal Gait, Normal Reflexes, No Motor/Sensory Deficits Psychiatric: Anxious Skin Exam: Warm, Dry, Intact, Normal Color Lymphatic: No Adenopathy Course - Vital Signs Last Recorded V/S: Last Vital Signs Temp 98.7 F 07/30/18 21:31 Pulse 130 H 07/30/18 21:31 Resp 20 07/30/18 21:31 BP 148/100 H 07/30/18 21:31 Pulse Ox 100 07/30/18 21:31 - Re-Assessments/Exams Free Text/Narrative Re-Assessment/Exam: 07/30/18 21:59 28 y/o female presented to ER with cc "she has tap worms coming out of her nose. " Her examination reveals impetigo around nose and corners of her lips. I will discharge with Keflex for outpatient antibiotic therapy and Mupirocin. Instructed to follow up with her PCP. Instructed to return to the ER for any new or acute worsening symptoms. Patient verbalized understanding and is comfortable with plan for discharge. Departure - Departure Time of Disposition: 22:02 Disposition: Home, Self-Care 01 Condition: Good Clinical Impression: Impetigo - Discharge Information *PRESCRIPTION DRUG MONITORING PROGRAM REVIEWED*: Not Applicable *COPY OF PRESCRIPTION DRUG MONITORING REPORT IN PATIENT ALLAN: Not Applicable Prescriptions: cephALEXin [Keflex] 500 mg PO Q8H 7 Days #21 cap Mupirocin Oint [Bactroban Oint] 22 gm .XX TID #1 tube Referrals: Yanni Jordan NP [Primary Care Provider] -
== END 2018-07-30 22:45 | disposition home or self-care (01) ==
LOC: JD.ED 21:00
DX: L01.00 Impetigo, unspecified (principal)
CPT/HCPCS: 99282; 99283

== ENCOUNTER 2018-09-06 22:20 | Emergency (ER) | payer MEDICAID | END 2018-09-07 00:45 | disposition left against medical advice (07) | LOC: JD.ED 22:20 | DX: Z53.21 Procedure and treatment not carried out due to patient leaving prior to being seen by health care provider (principal) | CPT/HCPCS: 99282 ==

== ENCOUNTER 2018-09-07 11:12 | Emergency (ER) | payer SELFPAY ==
[2018-09-07] MEDS ORDERED: Ondansetron 4 MG Tab.DIS PO ONE (12:58)
[2018-09-07] MEDS ORDERED: Fluconazole 150 MG Tab PO ONE (13:47)
--- NOTE | 2018-09-07 13:54 | EDM.PDOC ---
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 The patient notes that this started around one week ago. She did try [id number] treatment, Monistat 3 doses, and this did not provide much relief. She also tried an antifungal wash, and this did not provide much relief as well. She notes a thick white cottage cheese like discharge from her vagina. The patient notes that over the past 3 days however she feels as if she is becoming increasingly sick. She notes some fevers/chills with this. She feels that her eyes are burning, her ears are itchy, sick to her stomach, and she feels just generally unwell all over. She does not have any allergies to any medication.she denies any recent change in any sexual partners. And is not worried about an STD at this time. 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: Reports: , Other (See Below) Other ANALYTICAL TECH History: History of abnormal Pap smear with cryotherapy Psychiatric History: Reports: Depression Social & Family History - Family History Family Medical History: Noncontributory - Tobacco Use Smoking Status *Q: Current Every Day Smoker Years of Tobacco use: 14 Packs/Tins Daily: 1 - Caffeine Use Caffeine Use: Reports: Coffee, Soda - Recreational Drug Use Recreational Drug Use: Yes Drug Use in Last 12 Months: Yes 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 ED ROS GENERAL - Review of Systems Review Of Systems: See Below Constitutional: Reports: Fever, Chills HEENT: Reports: No Symptoms Respiratory: Reports: No Symptoms Cardiovascular: Reports: No Symptoms Endocrine: Reports: No Symptoms GI/Abdominal: Reports: Abdominal Pain (lower abdominal pain), Nausea. Denies: Constipation, Diarrhea, Vomiting : Reports: No Symptoms Musculoskeletal: Reports: No Symptoms Skin: Reports: Lesions (Multiple areas of scarring noted to extremities, consistent with self picking.) Neurological: Reports: No Symptoms Psychiatric: Reports: No Symptoms Hematologic/Lymphatic: Reports: No Symptoms ED EXAM, RENAL/ - Physical Exam Exam: See Below Exam Limited By: No Limitations General Appearance: Alert, WD/WN, No Apparent Distress, Mild Distress Eye Exam: Bilateral Eye: EOMI, Normal Inspection Respiratory/Chest: No Respiratory Distress, Lungs Clear, Normal Breath Sounds, No Accessory Muscle Use, Chest Non-Tender Cardiovascular: Normal Peripheral Pulses, Regular Rate, Rhythm, No Murmur GI/Abdominal: Normal Bowel Sounds, Soft, Non-Tender, No Distention, No Mass (Female) Exam: Deferred (Patient notes that there is thick white cottage cheese like discharge. She denies any burning with urination, or pain with sex. She notes there to be a lot of itching.), Vaginal Discharge Extremities: Normal Inspection (Multiple areas of scarring noted to bilateral upper extremities and face, consistent with self picking.), Normal Capillary Refill Neurological: Alert, Oriented, Normal Cognition, No Motor/Sensory Deficits Psychiatric: Normal Affect, Normal Mood Skin Exam: Warm, Dry, Intact, Normal Color, No Rash, Wound/Incision (Multiple areas of scarring noted to bilateral upper extremities and face, consistent with self picking.) Course - Vital Signs Last Recorded V/S: Last Vital Signs Temp 97.4 F 09/07/18 11:38 Pulse 107 H 09/07/18 11:38 Resp 15 09/07/18 11:38 BP 127/89 09/07/18 11:38 Pulse Ox 100 09/07/18 11:38 - Orders/Labs/Meds Orders: Active Orders 24 hr Category Date Time Status CULTURE URINE [RM] Stat Lab 09/07/18 13:55 Received Labs: Laboratory Tests 09/07/18 09/07/18 09/07/18 Range/Units 12:57 13:05 13:05 WBC 9.18 (3.98-10.04) K/mm3 RBC 4.96 (3.98-5.22) M/mm3 Hgb 16.0 H D (11.2-15.7) gm/L Hct 45.0 H (34.1-44.9) % MCV 90.7 (79.4-94.8) fl MCH 32.3 H (25.6-32.2) pg MCHC 35.6 H (32.2-35.5) g/dl RDW Std Deviation 44.3 (36.4-46.3) fL Plt Count 173 L (182-369) K/mm3 MPV 13.2 H (9.4-12.3) fl Neutrophils % (Manual) 52 (40-60) % Band Neutrophils % 0 (0-10) % Lymphocytes % (Manual) 38 (20-40) % Atypical Lymphs % 0 % Monocytes % (Manual) 8 (2-10) % Eosinophils % (Manual) 2 (0.7-5.8) % Basophils % (Manual) 0 L (0.1-1.2) Platelet Estimate Adequate RBC Morph Comment Normal Sodium 138 (136-145) mEq/L Potassium 3.7 (3.5-5.1) mEq/L Chloride 103 (98-107) mEq/L Carbon Dioxide 23 (21-32) mEq/L Anion Gap 15.7 H (5-15) BUN 12 (7-18) mg/dL Creatinine 0.7 (0.55-1.02) mg/dL Est Cr Clr Drug Dosing 117.39 mL/min Estimated GFR (MDRD) > 60 (>60) mL/min BUN/Creatinine Ratio 17.1 (14-18) Glucose 85 (74-106) mg/dL Calcium 9.1 (8.5-10.1) mg/dL Total Bilirubin 0.6 (0.2-1.0) mg/dL AST 17 (15-37) U/L ALT 25 (14-59) U/L Alkaline Phosphatase 81 (46-116) U/L Total Protein 7.9 (6.4-8.2) g/dl Albumin 4.2 (3.4-5.0) g/dl Globulin 3.7 gm/dL Albumin/Globulin Ratio 1.1 (1-2) Urine Color Yellow (Yellow) Urine Appearance Slt cloudy H (Clear) Urine pH 5.5 (5.0-8.0) Ur Specific [place] > or = 1.030 (1.005-1.030) Urine Protein 1+ H (Negative) Urine Glucose (UA) Negative (Negative) Urine Ketones Trace H (Negative) Urine Occult Blood 1+ H (Negative) Urine Nitrite Negative (Negative) Urine Bilirubin 2+ H (Negative) Urine Urobilinogen 0.2 (0.2-1.0) Ur Leukocyte Esterase Negative (Negative) Urine RBC 0-5 (0-5) /hpf Urine WBC 5-10 H (0-5) /hpf Ur Epithelial Cells 10-20 H (0-5) /hpf Amorphous Sediment Many H (NOT SEEN) /hpf Urine Bacteria Few (FEW) /hpf Urine Mucus Moderate H (FEW) /hpf Meds: Medications Discontinued Medications Generic Name Dose Route Start Last Admin Trade Name Freq PRN Reason Stop Dose Admin Fluconazole 150 mg 09/07/18 13:47 09/07/18 13:53 Diflucan PO 09/07/18 13:48 150 mg ONETIME ONE Administration Ondansetron HCl 4 mg 09/07/18 12:58 09/07/18 13:05 Zofran Odt PO 09/07/18 12:59 4 mg ONETIME ONE Administration - Re-Assessments/Exams Free Text/Narrative Re-Assessment/Exam: 09/07/18 12:30 Patient presents to the ED for evaluation of a yeast infection, and general feelings of being unwell. She has tried [id number] remedies and these have not provided her relief from her vaginal infection. I did order a CBC, CMP and UA to see if there was any other sort of bacterial infection going on, the urine sample she provided appears to have been contaminated. There were white blood cells present, but many epithelial cells present as well. I did send this for a culture. Her physical exam was nondescript, she did have some mild suprapubic pain. I have ordered fluconazole to be given in the ED today, and we'll provide the patient with prescription for 2 more doses, and will direct her to take these 72 hours apart. She was also nauseated at this ED visit, and I did give her a dose of 4mg ODT Zofran. 09/07/18 14:09 Patient was reassessed at bedside, and states she feels better. I will provide the patient with 2 more doses of flu, so I'll as described above, the patient has declined a prescription for Zofran at this time. I did talk with the patient about her urinalysis results, and a explained to her that she'll be called if she should need treatment for a UTI at that time. The patient is amenable to this plan. I did also recommend that she increase her oral fluid intake and take it easy the next day or 2. Departure - Departure Time of Disposition: 14:10 Disposition: Home, Self-Care 01 Condition: Fair Clinical Impression: Yeast infection of the vagina - Discharge Information *PRESCRIPTION DRUG MONITORING PROGRAM REVIEWED*: No *COPY OF PRESCRIPTION DRUG MONITORING REPORT IN PATIENT ALLAN: No Prescriptions: Fluconazole 150 mg PO ASDIRECTED #2 tablet Instructions: Vaginal Yeast Infection, Adult Referrals: PCP,None [Primary Care Provider] - Forms: ED Department Discharge Additional Instructions: You have been evaluated in the ED today for your yeast infection. Your laboratory evaluation today was within normal limits, he did not have a bacterial infection at this time. Your urine sample was sent for culture, for confirmation on whether or not you have a UTI at this time, you will be notified if you should need antibiotic treatment for urinary tract infection. You have been given one dose of 150 mg fluconazole in the ED today, you have been provided with 2 additional doses. Please take these 72 hours apart, (3 days apart) However, you may not need to take the second and third dose if your symptoms should start subsiding after this initial dose. Please do so at your discretion. These prescriptions have been sent to the clinic pharmacy located in the [facility]. Please increase her oral fluid intake and stay well-hydrated her this time, and take it easy over the next day or 2. Recommend that you try to refrain from sexual intercourse while you are still having discharge, although this is not likely to be contagious to your male sexual partner. Please return to the ED if your symptoms should change or worsen. - My Orders Last 24 Hours: My Active Orders 09/07/18 13:55 CULTURE URINE [RM] Stat - Assessment/Plan Last 24 Hours: My Active Orders 09/07/18 13:55 CULTURE URINE [RM] Stat
== END 2018-09-07 14:32 | disposition home or self-care (01) ==
LOC: JD.ED 11:12
DX: B37.3 Candidiasis of vulva and vagina (principal); F17.210 Nicotine dependence, cigarettes, uncomplicated
CPT/HCPCS: 36415; 80053; 81001; 85007; 85027; 87086; 99283; A9270

== ENCOUNTER 2018-09-12 07:08 | Emergency (ER) | payer SELFPAY ==
--- NOTE | 2018-09-12 08:23 | EDM.PDOC ---
ED HPI GENERAL MEDICAL PROBLEM - General Chief Complaint: ENT Problem Stated Complaint: EYES FOGGY FEELS FAINT Time Seen by Provider: 09/12/18 07:24 Source of Information: Reports: Patient History Limitations: Reports: No Limitations - History of Present Illness INITIAL COMMENTS - FREE TEXT/NARRATIVE: The patient presents with "foggy" vision and generalized muscle pain. This has been going on for a few days. Five days ago she was treated for a suspected yeast infection. She now has a rash on her arms and legs. She has myalgias and her vision is not right. She says it is "foggy." She also is not thinking right. She denies fever but she does have chills. She has a generalized headache but no sore throat. She has no chest pain or shortness of breath. She has generalized abdominal pain and nausea. She denies dysuria. Onset: Gradual Duration: Day(s): Location: Reports: Generalized Quality: Reports: Ache, Sharp Severity: Moderate Improves with: Reports: None Worsens with: Reports: None Associated Symptoms: Reports: Fever/Chills, Headaches, Nausea/Vomiting. Denies : Chest Pain, Cough, Shortness of Breath Generalized Pain Score (Numeric/FACES): 5 - Related Data Allergies Allergy/AdvReac Type Severity Reaction Status Date / Time No Known Allergies Allergy Verified 09/07/18 11:37 Home Meds: Home Meds Topiramate 75 mg PO DAILY 09/06/18 [History] Fluconazole 150 mg PO ASDIRECTED #2 tablet 09/07/18 [Rx] Ondansetron [Zofran ODT] 4 mg PO Q6H PRN #20 tab.dis 09/12/18 [Rx] predniSONE [Prednisone] 40 mg PO DAILY #10 tablet 09/12/18 [Rx] Past Medical History HEENT History: Reports: Other (See Below) Other HEENT History: Dental abscess in Gastrointestinal History: Reports: GERD 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 Denies: Fever HEENT: Reports: Other ("foggy" eyes) Respiratory: Reports: No Symptoms Cardiovascular: Reports: No Symptoms Endocrine: Reports: No Symptoms GI/Abdominal: Reports: Abdominal Pain, Nausea. Denies: Diarrhea, Vomiting : Reports: No Symptoms Musculoskeletal: Reports: No Symptoms Skin: Reports: No Symptoms ED EXAM, ENT - Physical Exam Exam: See Below Exam Limited By: No Limitations General Appearance: Alert, No Apparent Distress Ears: Normal External Exam Nose: Normal Inspection Head: Atraumatic, Normocephalic Neck: Normal Inspection Respiratory/Chest: No Respiratory Distress, Lungs Clear, Normal Breath Sounds Cardiovascular: Regular Rate, Rhythm, No Edema, No Murmur GI/Abdominal: Soft, Non-Tender, No Organomegaly, No Mass Back: Normal Inspection Extremities: Other (Papules on her arms and legs) Course - Vital Signs Last Recorded V/S: Last Vital Signs Temp 96.0 F 09/12/18 07:13 Pulse 92 09/12/18 07:13 Resp 16 09/12/18 07:13 BP 144/100 H 09/12/18 07:13 Pulse Ox 97 09/12/18 07:13 - Orders/Labs/Meds Orders: Active Orders 24 hr Category Date Time Status CULTURE BLOOD [BC] Stat Lab 09/12/18 09:31 Ordered CULTURE BLOOD [BC] Stat Lab 09/12/18 09:31 Ordered Blood Culture x2 Reflex Set [OM.PC] Stat Oth 09/12/18 09:31 Ordered Labs: Laboratory Tests 09/12/18 09/12/18 09/12/18 Range/Units 08:06 08:06 08:06 WBC 8.28 (3.98-10.04) K/mm3 RBC 4.74 (3.98-5.22) M/mm3 Hgb 14.9 (11.2-15.7) gm/L Hct 43.3 (34.1-44.9) % MCV 91.4 (79.4-94.8) fl MCH 31.4 (25.6-32.2) pg MCHC 34.4 (32.2-35.5) g/dl RDW Std Deviation 45.1 (36.4-46.3) fL Plt Count 166 L (182-369) K/mm3 MPV 13.3 H (9.4-12.3) fl Neut % (Auto) 50.6 (34.0-71.1) % Lymph % (Auto) 40.0 (19.3-51.7) % Gordon % (Auto) 7.7 (4.7-12.5) % Eos % (Auto) 1.4 (0.7-5.8) Baso % (Auto) 0.2 (0.1-1.2) % Neut # (Auto) 4.18 (1.56-6.13) K/mm3 Lymph # (Auto) 3.31 (1.18-3.74) K/mm3 Gordon # (Auto) 0.64 H (0.24-0.36) K/mm3 Eos # (Auto) 0.12 (0.04-0.36) K/mm3 Baso # (Auto) 0.02 (0.01-0.08) K/mm3 ESR 9 (0-20) mm/hr Sodium 141 (136-145) mEq/L Potassium 4.0 (3.5-5.1) mEq/L Chloride 107 (98-107) mEq/L Carbon Dioxide 23 (21-32) mEq/L Anion Gap 15.0 (5-15) BUN 13 (7-18) mg/dL Creatinine 0.8 (0.55-1.02) mg/dL Est Cr Clr Drug Dosing 104.64 mL/min Estimated GFR (MDRD) > 60 (>60) mL/min BUN/Creatinine Ratio 16.3 (14-18) Glucose 93 (74-106) mg/dL Calcium 9.2 (8.5-10.1) mg/dL Total Bilirubin 0.4 (0.2-1.0) mg/dL AST 17 (15-37) U/L ALT 27 (14-59) U/L Alkaline Phosphatase 82 (46-116) U/L C-Reactive Protein 0.5 (<1.0) mg/dL Total Protein 7.9 (6.4-8.2) g/dl Albumin 4.2 (3.4-5.0) g/dl Globulin 3.7 gm/dL Albumin/Globulin Ratio 1.1 (1-2) Meds: Medications Discontinued Medications Generic Name Dose Route Start Last Admin Trade Name Freq PRN Reason Stop Dose Admin Ondansetron HCl 4 mg 09/12/18 09:31 Zofran Odt PO 09/12/18 09:32 ONETIME ONE - Re-Assessments/Exams Free Text/Narrative Re-Assessment/Exam: 09/12/18 08:51 Her CBC and CMP look good. 09/12/18 09:38 Her labs all look good. The patient is convinced she has yeast in her blood. I do not feel that is the case but I will get some blood cultures. I feel she is reacting to something. I will get her on some prednisone and have her take pepcid and benadryl. Departure - Departure Time of Disposition: :40 Disposition: Home, Self-Care 01 Condition: Good Clinical Impression: Rash - Discharge Information *PRESCRIPTION DRUG MONITORING PROGRAM REVIEWED*: Not Applicable *COPY OF PRESCRIPTION DRUG MONITORING REPORT IN PATIENT ALLAN: Not Applicable Prescriptions: Ondansetron [Zofran ODT] 4 mg PO Q6H PRN #20 tab.dis PRN Reason: Nausea\\vomiting predniSONE [Prednisone] 40 mg PO DAILY #10 tablet Referrals: PCP,None [Primary Care Provider] - Marysol Cadena PA-C [[facility]] - 1 Week Forms: ED Department Discharge Additional Instructions: Take the prednisone daily for 5 days. Take pepcid daily for 5 days. Take benadryl as needed for rash or itching. Take the zofran as needed for nausea and vomiting. Please return if you are worse. - My Orders Last 24 Hours: My Active Orders 09/12/18 09:31 CULTURE BLOOD [BC] Stat CULTURE BLOOD [BC] Stat Blood Culture x2 Reflex Set [OM.PC] Stat - Assessment/Plan Last 24 Hours: My Active Orders 09/12/18 09:31 CULTURE BLOOD [BC] Stat CULTURE BLOOD [BC] Stat Blood Culture x2 Reflex Set [OM.PC] Stat
[2018-09-12] MEDS ORDERED: Ondansetron 4 MG Tab.DIS PO ONE (09:31)
== END 2018-09-12 09:50 | disposition home or self-care (01) ==
LOC: JD.ED 07:08
DX: R21 Rash and other nonspecific skin eruption (principal); F32.9 Major depressive disorder, single episode, unspecified; K21.9 Gastro-esophageal reflux disease without esophagitis; Z79.899 Other long term (current) drug therapy
CPT/HCPCS: 36415; 80053; 85025; 85652; 86140; 87040; 99284; A9270; 99283

== ENCOUNTER 2018-09-13 18:32 | Emergency (ER) | payer MEDICAID ==
[2018-09-13] MEDS ORDERED: Sodium Chloride 0.9% 10 ML Syringe FLUSH PRN (19:12)
[2018-09-13] MEDS ORDERED: Sodium Chloride 0.9% 1,000 ML IV ONE (19:12)
[2018-09-13] MEDS ORDERED: LORazepam 2 MG/ML SDV IVPUSH ONE (19:12)
[2018-09-13] MEDS ORDERED: Ondansetron 4 MG/2 ML SDV IVPUSH ONE (19:12)
--- NOTE | 2018-09-13 19:27 | EDM.PDOC ---
ED HPI GENERAL MEDICAL PROBLEM - General Chief Complaint: Respiratory Problem Stated Complaint: CHEST PAIN/SOB Time Seen by Provider: 09/13/18 19:23 Source of Information: Reports: Patient History Limitations: Reports: No Limitations - History of Present Illness INITIAL COMMENTS - FREE TEXT/NARRATIVE: Patient is a 28 year old femal who presents to the e.d. complaining of substernal chest discomfort described as being sharp worsened with taking a deep breath and palpation. Vital signs are stable. There is no swelling or tenderness to her lower extremities. She feels like her throat is tight and is upset when we discuss her current situation with losing her children because of methamphetamine use. She is taking topiramate for her anxiety to which she states is not really working. She was evaluated yesterday in the emergency department with concerns of having a yeast infection. She was seen the first part of August and placed on fluconazole. She thinks the yeast infection is in her throat as well as her vagina region. She was seen yesterday and states she's been having foggy vision and generalized muscle pain for the past 5 days. She states she had an rash on her arms and legs that are itchy. She been having some generalized headaches with sore throat along with sinus congestion and runny nose. She denied any chest pain or shortness of breath yesterday. She also admitted to generalized abdominal pain with nausea. There has been no diarrhea. She notes some dysuria and abnormal discharge from her vagina as well. States her last menstrual cycle was 2 weeks ago. She is not since she's had a tubal ligation. She was provided a course of prednisone and Zofran. She's been taking both these medications. Examination was essentially benign minus some papules on her arms and legs. These lesions have been itchy. Patient has been picking at them. She had lab work obtained yesterday which came back negative. Blood cultures were obtained as well. Patient currently denies any shortness of breath, cough, hemoptysis, dizziness, headache, loss of vision, numbness or tingling to extremities, or any additional complaints. Neck Pain Score (Numeric/FACES): 7 - Related Data Allergies Allergy/AdvReac Type Severity Reaction Status Date / Time No Known Allergies Allergy Verified 09/13/18 18:48 Home Meds: Home Meds Topiramate 75 mg PO DAILY 09/06/18 [History] Fluconazole 150 mg PO ASDIRECTED #2 tablet 09/07/18 [Rx] Ondansetron [Zofran ODT] 4 mg PO Q6H PRN #20 tab.dis 09/12/18 [Rx] predniSONE [Prednisone] 40 mg PO DAILY #10 tablet 09/12/18 [Rx] Past Medical History HEENT History: Reports: Other (See Below) Other HEENT History: Dental abscess in Gastrointestinal History: Reports: [employer] History: Reports: , Other (See Below) 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: History of abnormal Pap smear with cryotherapy Psychiatric History: Reports: Depression - Past Surgical History Female Surgical History: Reports: Tubal Ligation Social & Family History - Family History Family Medical History: Noncontributory - Tobacco Use Smoking Status *Q: Heavy Tobacco Smoker Years of Tobacco use: 10 Packs/Tins Daily: 1 - Caffeine Use Caffeine Use: Reports: Coffee, Soda - Recreational Drug Use Recreational Drug Use: Yes Drug Use in Last 12 Months: Yes Recreational Drug Type: Reports: Methamphetamine ED ROS GENERAL - Review of Systems Review Of Systems: ROS reveals no pertinent complaints other than HPI. ED EXAM, GENERAL - Physical Exam Exam: See Below Exam Limited By: Other (crying) General Appearance: Alert, WD/WN, Mild Distress Eye Exam: Bilateral Eye: Normal Inspection, PERRL Ears: Hearing Grossly Normal Nose: Normal Inspection, Normal Mucosa, No Blood Throat/Mouth: Normal Inspection, Normal Oropharynx, Normal Voice, No Airway Compromise Head: Atraumatic, Normocephalic Neck: Normal Inspection, Supple, Non-Tender, Full Range of Motion. No: Lymphadenopathy (L), Lymphadenopathy (R) Respiratory/Chest: No Respiratory Distress, Lungs Clear, Normal Breath Sounds, No Accessory Muscle Use, Chest Non-Tender Cardiovascular: Normal Peripheral Pulses, Regular Rate, Rhythm, No Murmur ( obvious) GI/Abdominal: Normal Bowel Sounds, Soft, No Organomegaly, No Distention, Tender (suprapubic) (Female) Exam: Deferred Back Exam: Normal Inspection Extremities: Normal Inspection, Normal Range of Motion, Non-Tender, No Pedal Edema Neurological: Alert, Oriented, CN II-XII Intact, Normal Cognition, No Motor/ Sensory Deficits Psychiatric: Tearful Skin Exam: Warm, Dry, Rash (arms/legs/abdomen) Course - Vital Signs Last Recorded V/S: Last Vital Signs Temp 99.5 F 09/13/18 18:44 Pulse 88 09/13/18 18:44 Resp 20 09/13/18 18:44 BP 140/87 09/13/18 18:44 Pulse Ox 100 09/13/18 18:44 Orthostatic Blood Pressure [ 122/95 Standing] Orthostatic Blood Pressure [ 122/90 Sitting] Orthostatic Blood Pressure [ 133/83 Supine] - Orders/Labs/Meds Orders: Active Orders 24 hr Category Date Time Status EKG 12 Lead [EKG Documentation Completion] [RC] STAT Care 09/13/18 18:51 Active Orthostatic Vital Signs [RC] ASDIRECTED Care 09/13/18 19:16 Active Peripheral IV Care [RC] . DIRECTED Care 09/13/18 19:12 Active Chest 1V Frontal [CR] Stat Exams 09/13/18 19:11 Taken DRUG SCREEN, URINE [URCHEM] Stat Lab 09/13/18 19:11 Ordered GC/CHLAMYDIA BY PCR [MOLEC] Stat Lab 09/13/18 19:36 Received UA W/MICROSCOPIC [URIN] Stat Lab 09/13/18 19:11 Ordered Peripheral IV Insertion Adult [OM.PC] Routine Oth 09/13/18 19:12 Ordered Labs: Laboratory Tests 09/13/18 09/13/18 09/13/18 Range/Units 19:20 19:20 19:20 WBC 8.99 (3.98-10.04) K/mm3 RBC 5.18 (3.98-5.22) M/mm3 Hgb 16.0 H (11.2-15.7) gm/L Hct 46.9 H (34.1-44.9) % MCV 90.5 (79.4-94.8) fl MCH 30.9 (25.6-32.2) pg MCHC 34.1 (32.2-35.5) g/dl RDW Std Deviation 45.1 (36.4-46.3) fL Plt Count 163 L (182-369) K/mm3 MPV 13.8 H (9.4-12.3) fl Neutrophils % (Manual) 56 (40-60) % Band Neutrophils % 1 (0-10) % Lymphocytes % (Manual) 30 (20-40) % Atypical Lymphs % 8 % Monocytes % (Manual) 2 (2-10) % Eosinophils % (Manual) 2 (0.7-5.8) % Basophils % (Manual) 1 (0.1-1.2) Platelet Estimate Adequate Plt Morphology Comment Normal RBC Morph Comment Normal Sodium 142 (136-145) mEq/L Potassium 3.7 (3.5-5.1) mEq/L Chloride 106 (98-107) mEq/L Carbon Dioxide 22 (21-32) mEq/L Anion Gap 17.7 H (5-15) BUN 15 (7-18) mg/dL Creatinine 0.9 (0.55-1.02) mg/dL Est Cr Clr Drug Dosing 87.90 mL/min Estimated GFR (MDRD) > 60 (>60) mL/min BUN/Creatinine Ratio 16.7 (14-18) Glucose 93 (74-106) mg/dL Calcium 9.7 (8.5-10.1) mg/dL Total Bilirubin 0.2 (0.2-1.0) mg/dL AST 18 (15-37) U/L ALT 29 (14-59) U/L Alkaline Phosphatase 89 (46-116) U/L Total Protein 8.5 H (6.4-8.2) g/dl Albumin 4.5 (3.4-5.0) g/dl Globulin 4.0 gm/dL Albumin/Globulin Ratio 1.1 (1-2) TSH 3rd Generation 1.301 (0.358-3.74) uIU/mL HCG, Qual Negative (NEGATIVE) Meds: Medications Discontinued Medications Generic Name Dose Route Start Last Admin Trade Name Freq PRN Reason Stop Dose Admin Sodium Chloride 1,000 mls @ 999 mls/hr 09/13/18 19:12 09/13/18 19:30 Normal Saline IV 09/13/18 20:12 999 mls/hr ONETIME ONE Administration Lorazepam 0.5 mg 09/13/18 19:12 09/13/18 19:41 Ativan IVPUSH 09/13/18 19:13 Not Given ONETIME ONE Ondansetron HCl 4 mg 09/13/18 19:12 09/13/18 19:41 Zofran IVPUSH 09/13/18 19:13 Not Given ONETIME ONE Sodium Chloride 10 ml 09/13/18 19:12 05/18/19 20:14 Saline Flush FLUSH 10 ml ASDIRECTED PRN Administration Keep Vein Open - Re-Assessments/Exams Free Text/Narrative Re-Assessment/Exam: Per nursing staff patient yesterday had omitted to feeling her drug test this past week. Patient when asked by me when she use her methamphetamines last his initial one month and then it was 2 months. She was uncertain. IV established with Ativan 0.5 mg IVP, Zofran 4 mg IVP, and normal saline bolus. Initial labs and studies include: CBC, chem 14, hCG, GC chlamydia, urine drug screen, TSH, UA, wet prep, chest x-ray one view, and EKG. Orthostatic vital signs will be obtained as well. Patient refuses any medications except for the IV fluids. Orthostatic vital signs were obtained and were negative. Patient requested and the wet prep be performed by nursing staff. EKG: SR at a rate of 88 with nonspecific findings. X-ray of the chest revealed no acute findings. Reviewed with Dr. Sanchez. Final interpretation is pending. Labs reviewed: CBC was essentially normal minus hemoglobin 16.0 and platelet count 163. Sodium potassium within normal limits. AG 17.7. Creatinine 0.9. AST and ALT are within normal limits. TSH normal. HCG was negative. Wet prep was negative for yeast, Trichomonas, and clue cells. Few wbc's. Rare RBCs. Few epithelial cells. Trichomonas rapid AG negative. 2048 I discussed the results of recent labs and x-ray with patient. Patient continues to be argumentative that she has yeast infection. I have instructed that there was no findings in her oral cavity suggesting oral candidiasis. Patient has postnasal drip which is causing irritation to the posterior pharynx that could be managed with Flonase and also Claritin. She continues to have periumbilical/suprapubic abdominal discomfort. I've instructed the patient that a UA is needed to rule out a UTI. She has no epigastric discomfort suggesting gastritis upon examination. Bonilla sign and also McBurney's point was negative. There was no adnexal tenderness. I've offered to obtain a CT of the abdomen and pelvis to further delineate the cause of her discomfort. Patient has refused all additional testing and would like to be discharged home. States she is a [employer] and needs to go to work at 3:00 the morning. Patient states she will come back when it's more important to her. Furthermore we addressed the skin lesions to her body from her obsessive picking from using methamphetamines. Patient states she's been on doxycycline has a recent with no resolution. There are no findings of patient having any abscesses. Again I offered additional testing to further delineate the cause of her discomfort. Patient refuses. She also stated she wants to go home since she saw the nurse that had her children taken away. Patient is visibly upset and crying. Her stepfather who is present asked the patient to have all the testing completed prior to leaving. Patient again refused requested IV be taken out so she can leave. Patient stated she'll go to [place] if needed. I did inform the patient that [place] would not do anything different then what we are trying to do today. I again stated to the patient with step father present I am here to help her feel better and figure out what is contributing to her ill feeling. She again refuses and requested to leave. I advised she will sign out AMA. Departure - Departure Time of Disposition: 21:05 Disposition: Against Medical Advice 07 Condition: Good Clinical Impression: Dysuria, Vaginal discharge, Anxiety, Methamphetamine abuse Abdominal pain Qualifiers: Abdominal location: periumbilical Qualified Code(s): R10.33 - Periumbilical pain - Discharge Information Referrals: PCP,None [Primary Care Provider] - Forms: ED Department Discharge - My Orders Last 24 Hours: My Active Orders 09/13/18 18:51 EKG 12 Lead [EKG Documentation Completion] [RC] STAT 09/13/18 19:11 Chest 1V Frontal [CR] Stat DRUG SCREEN, URINE [URCHEM] Stat UA W/MICROSCOPIC [URIN] Stat 09/13/18 19:12 Peripheral IV Care [RC] . DIRECTED Peripheral IV Insertion Adult [OM.PC] Routine 09/13/18 19:16 Orthostatic Vital Signs [RC] ASDIRECTED 09/13/18 19:36 GC/CHLAMYDIA BY PCR [MOLEC] Stat - Assessment/Plan Last 24 Hours: My Active Orders 09/13/18 18:51 EKG 12 Lead [EKG Documentation Completion] [RC] STAT 09/13/18 19:11 Chest 1V Frontal [CR] Stat DRUG SCREEN, URINE [URCHEM] Stat UA W/MICROSCOPIC [URIN] Stat 09/13/18 19:12 Peripheral IV Care [RC] . DIRECTED Peripheral IV Insertion Adult [OM.PC] Routine 09/13/18 19:16 Orthostatic Vital Signs [RC] ASDIRECTED 09/13/18 19:36 GC/CHLAMYDIA BY PCR [MOLEC] Stat
[2018-09-13 21:14] LABS: C. TRACHOMATIS BY PCR NOT DETECTED; N. GONORRHOEAE BY PCR NOT DETECTED
--- NOTE | 2018-09-15 07:28 | CR ---
Chest: Portable view of the chest was obtained. Comparison: No prior chest x-ray. Heart size and mediastinum are normal. Lungs are clear. Bony structures are unremarkable. Impression: 1. Nothing acute is identified on portable chest x-ray. Diagnostic code #1
== END 2018-09-13 20:50 | disposition left against medical advice (07) ==
LOC: JD.ED 18:32
DX: F41.9 Anxiety disorder, unspecified (principal); R10.33 Periumbilical pain; N89.8 Other specified noninflammatory disorders of vagina; F15.10 Other stimulant abuse, uncomplicated; R30.0 Dysuria; F17.210 Nicotine dependence, cigarettes, uncomplicated; Z98.51 Tubal ligation status
CPT/HCPCS: 36415; 71045; 80053; 84443; 84703; 85007; 85027; 87210; 87491; 87591; 87808; 93005; 96360; 99285; J7040; 93010

== ENCOUNTER 2018-10-23 20:19 | Emergency (ER) | payer MEDICAID ==
--- NOTE | 2018-10-23 20:37 | EDM.PDOC ---
ED HPI GENERAL MEDICAL PROBLEM - General Chief Complaint: Syncope Stated Complaint: NUMBNESS IN HANDS AND FEET CONFUSED/FAINTED Time Seen by Provider: 10/23/18 20:37 Source of Information: Reports: Patient History Limitations: Reports: No Limitations - History of Present Illness INITIAL COMMENTS - FREE TEXT/NARRATIVE: 28-year-old female presents to the ED by driving herself here. Suggested that she was found unresponsive in the parking lot at a local gas station where she is hanging out. Patient admits to methamphetamine use at 0600 hrs. this morning. By history she has a chronic methamphetamine user. She states last time she used was a month ago. 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 She states she has been drinking a large amount of water throughout the day doesn't feel that she became dehydrated. Since presentation she presents with numbness and tingling in both hands and feet. I.e. hyperventilation syndrome. She states that once she was aroused by other people in the parking lot she became scared and then developed numbness and tingling in her extremities. Patient states that she has 8 today. She did have a normal bowel movement today although it was a bit hard and painful to pass. She states no bowel movement for the last 4 days. She does admit that her diet is a regular. She has some diffuse cervical neck pain but no head pain. Denies any chest pain today after using meth. She feels shaky and is trembling. Vital signs show respiratory rate of 20/m with sats of 99% on room air. Weight is 1 30/m sinus tachycardia. BP is elevated at 152/107. She is not and tetany at this time although she claims that she could not make a fist with either hand due to weakness. Onset: Today Onset Date: 10/23/18 Onset Time: 20:00 Duration: Minutes: Location: Reports: Generalized (Generalized sense of weakness trembling numbness and tingling in hands and feet.) Severity: Moderate Improves with: Reports: None Worsens with: Reports: None Context: Reports: Other (Apparently she passed out that the local truck stop where she was hanging out. It's unclear if she actually fell to the ground or suffered a true syncopal event. Hot out at this time. She admits to using methamphetamines this morning before going up towards [place] to do a painting job and then drove back. She states she has drank a lot of water today. At time of presentation she is mildly hyperventilating. Has elevated blood pressure and is tachycardic at 1 30/m. She appears to be mildly volume depleted). Denies: Activity, Exercise, Lifting, Sick Contact, Trauma Associated Symptoms: Reports: Confusion, Cough, Loss of Appetite, Malaise, Nausea/Vomiting, Weakness. Denies: Chest Pain (Confused about what is happening to her.), cough w sputum, Diaphoresis, Fever/Chills, Headaches, Rash, Seizure (Nausea without vomiting), Shortness of Breath, Syncope Treatments PATIENT SERVICES CLERK: Reports: Other (see below) (1.) Headache Pain Score (Numeric/FACES): 4 - Related Data Allergies Allergy/AdvReac Type Severity Reaction Status Date / Time No Known Allergies Allergy Verified 09/13/18 18:48 Home Meds: Home Meds Topiramate 75 mg PO DAILY 09/06/18 [History] Escitalopram [Lexapro] 10 mg PO DAILY 10/23/18 [History] Past Medical History HEENT History: Reports: Other (See Below) Other HEENT History: Dental abscess in Gastrointestinal History: Reports: GERD FREIGHT TRAFFIC CONSULTANT History: Reports: , Other (See Below) Other FREIGHT TRAFFIC CONSULTANT History: History of abnormal Pap smear with cryotherapy Psychiatric History: Reports: Addiction (To methamphetamines.), Depression Dermatologic History: Reports: Other (See Below) (Has a history of diffuse skin picking both upper extremities, abdominal wall and lower extremities, ie. in areas that she can reach. 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 She states there with her mother until she can get her life back together. ED ROS GENERAL - Review of Systems Review Of Systems: See Below Constitutional: Reports: Malaise, Weakness, Fatigue, Decreased Appetite, Weight Loss. Denies: Fever, Chills HEENT: Reports: No Symptoms Respiratory: Reports: Shortness of Breath, Cough (Occasional cough.). Denies: Wheezing, Pleuritic Chest Pain Cardiovascular: Reports: Lightheadedness, Palpitations. Denies: Chest Pain, Blood Pressure Problem, Claudication, Dyspnea on Exertion, Edema, Orthopnea Endocrine: Reports: Fatigue (Occasionally.) GI/Abdominal: Reports: Constipation, Decreased Appetite, Nausea : Reports: Other (HL was has a yeast vaginitis. I.e. itching. This time she reports that she has a blackish dark brownish vaginal discharge. Not sure when her last period was.) Musculoskeletal: Reports: Back Pain Skin: Reports: Other (Multiple papules on arms and legs and abdomen from skin picking.--neurodermatitis.) Neurological: Reports: Dizziness, Numbness, Syncope ([place] to possibly fainted and she was found unresponsive on the ground beside her car by passers by local gas station. He doesn't remember sitting down to rest. It is still 80 outside today), Tingling (In both hands and feet.), Weakness. Denies: Headache, Change in Speech (Generalized) Psychiatric: Reports: Anxiety, Depression (Chronically. She is on citalopram for this.). Denies: Hallucinations, Homicidal Ideation, Mood Lability, Suicidal Ideation Hematologic/Lymphatic: Reports: No Symptoms Immunologic: Reports: Other (She reports that she has chronic candidiasis. On her tongue and her blood.) - Physical Exam Exam: See Below Exam Limited By: No Limitations General Appearance: Alert, WD/WN, Moderate Distress (Very anxious and mildly agitated.), Other (Generalized trembling. She cannot make a fist with either hand due to weakness in the upper extremities. Still has some numbness and tingling in both lower extremities.) Eye Exam: Bilateral Eye: Normal Inspection Nose: Normal Inspection Throat/Mouth: Normal Lips (Dry lips.), Other (Tongue is dry and coated. White in color but no evidence of oral candidiasis.). No: Normal Teeth, Evidence of Tongue Biting, Inflammation Head Exam: Atraumatic, Normocephalic, Other (No outward signs of head or facial trauma.) Neck: Full Range of Motion, Tender Midline (Mild tenderness in the midline C4-5 and 6. There is no evidence of trauma to this area with abrasions or contusions and she does have full unopposed range of motion of her neck.) Respiratory/Chest: Lungs Clear (Mild tachypnea at rest 20-24/m.), Chest Non- Tender, Respiratory Distress. No: Decreased Breath Sounds Cardiovascular: No Edema (Sinus tachycardia at 1:30 per minute on the monitor.) , No Gallop, No JVD, No Murmur, No Rub, Tachycardia GI/Abdominal: Normal Bowel Sounds, Soft, Non-Tender, No Organomegaly, No Abnormal Bruit, No Mass, Pelvis Stable Neuro Exam (Abbreviated): Alert, Oriented, CN II-XII Intact, Normal Cognition, Memory Loss Remote Events, Other (She does remember how she ended up on the pavement beside her vehicle. So now she suffered a syncopal event. But when she awoke she was scared and began to have hyperventilation syndrome. She drove herself to the hospital. She is mildly anxious. Blood pressure elevated 150-107 with a sinus tachycardia of 1 29/m. Respiratory 20-24/m with sats of 99% on room air. She will still methamphetamine use earlier this morning but denies amphetamine use this afternoon.). No: Inattentive, Confused, Slow to Respond, Unresponsive DTR: 2+: Bicep (R), Bicep (L), 3+: Patella (R), Patella (L) Back Exam: Normal Inspection, Full Range of Motion, Other (No hour and signs of neurodermatitis on her entire back or nape of neck. Small amount of some burning but neck. No signs of trauma to her thoracic or lumbar spine.) Extremities: Other (Upper and lower extremities show evidence of neurodermatitis with picking and small erythematous papules particularly in the arms. No active infection in any of them is appreciated.) Psychiatric: Anxious Skin Exam: Warm, Dry, Intact, Normal Color, Rash (Neurodermatitis upper extremities abdomen and lower extremities.) EKG INTERPRETATION EKG Date: 10/23/18 Time: 20:59 Rhythm: Other (Sinus tachycardia) Rate (Beats/Min): 104 [place]: Normal P-Wave: Present QRS: Other (Decreased voltage in the precordial leads.) ST-T: Other (T-wave flattening in 3 and aVF nonspecific finding) QT: Normal EKG Interpretation Comments: Borderline ECG. Course - Vital Signs Last Recorded V/S: Last Vital Signs Temp 36.2 C 10/23/18 20:30 Pulse 129 H 10/23/18 20:30 Resp 20 10/23/18 20:30 BP 152/107 H 10/23/18 20:30 Pulse Ox 99 10/23/18 20:30 - Orders/Labs/Meds Orders: Active Orders 24 hr Category Date Time Status EKG Documentation Completion [RC] STAT Care 10/23/18 20:49 Active CULTURE GENITAL [RM] Stat Lab 10/23/18 21:30 Received Dextrose 5%-0.9% NaCl [Dextrose 5%-Normal Saline] 1,000 Med 10/23/18 21:00 Active ml IV ASDIRECTED Medication Orders Dextrose/Sodium Chloride (Dextrose 5%-Normal Saline) 1,000 mls @ 999 mls/hr IV ASDIRECTED BOO Last Admin: 10/23/18 21:12 Dose: 999 mls/hr Labs: Laboratory Tests 10/23/18 10/23/18 10/23/18 Range/Units 21:20 21:20 21:20 WBC 9.21 (3.98-10.04) K/mm3 RBC 4.76 (3.98-5.22) M/mm3 Hgb 15.1 (11.2-15.7) gm/L Hct 44.1 (34.1-44.9) % MCV 92.6 (79.4-94.8) fl MCH 31.7 (25.6-32.2) pg MCHC 34.2 (32.2-35.5) g/dl RDW Std Deviation 43.5 (36.4-46.3) fL Plt Count 153 L (182-369) K/mm3 MPV 13.6 H (9.4-12.3) fl Neutrophils % (Manual) 62 H (40-60) % Band Neutrophils % 0 (0-10) % Lymphocytes % (Manual) 33 (20-40) % Atypical Lymphs % 0 % Monocytes % (Manual) 3 (2-10) % Eosinophils % (Manual) 1 (0.7-5.8) % Basophils % (Manual) 1 (0.1-1.2) Platelet Estimate Decreased RBC Morph Comment Normal Sodium 141 (136-145) mEq/L Potassium 3.8 (3.5-5.1) mEq/L Chloride 106 (98-107) mEq/L Carbon Dioxide 24 (21-32) mEq/L Anion Gap 14.8 (5-15) BUN 19 H (7-18) mg/dL Creatinine 0.9 (0.55-1.02) mg/dL Est Cr Clr Drug Dosing 91.31 mL/min Estimated GFR (MDRD) > 60 (>60) mL/min BUN/Creatinine Ratio 21.1 H (14-18) Glucose 138 H (74-106) mg/dL Calcium 9.6 (8.5-10.1) mg/dL Total Bilirubin 0.3 (0.2-1.0) mg/dL AST 16 (15-37) U/L ALT 28 (14-59) U/L Alkaline Phosphatase 85 (46-116) U/L Troponin I < 0.017 (0.00-0.056) ng/mL C-Reactive Protein 1.0 (<1.0) mg/dL Total Protein 7.5 (6.4-8.2) g/dl Albumin 3.9 (3.4-5.0) g/dl Globulin 3.6 gm/dL Albumin/Globulin Ratio 1.1 (1-2) HCG, Qual Negative (NEGATIVE) Urine Color (Yellow) Urine Appearance (Clear) Urine pH (5.0-8.0) Ur Specific Basile (1.005-1.030) Urine Protein (Negative) Urine Glucose (UA) (Negative) Urine Ketones (Negative) Urine Occult Blood (Negative) Urine Nitrite (Negative) Urine Bilirubin (Negative) Urine Urobilinogen (0.2-1.0) Ur Leukocyte Esterase (Negative) Urine RBC (0-5) /hpf Urine WBC (0-5) /hpf Ur Epithelial Cells (0-5) /hpf Urine Bacteria (FEW) /hpf Urine Mucus (FEW) /hpf Urine Opiates Screen (XOUGQL=455) Ur Buprenorphine Scrn (CUTOFF=10) Ur Oxycodone Screen (XUQ6BM=406) Urine Methadone Screen (HMDINO=522) Ur Propoxyphene Screen (XOGJTS=884) Ur Barbiturates Screen (IHLBIV=533) Ur Tricyclics Screen (CCUYWF=051) Ur Phencyclidine Scrn (CUTOFF=25) Ur Amphetamine Screen (CVRMNX=627) U Methamphetamines Scrn (WZUIKK=786) U Benzodiazepines Scrn (MNXURA=347) U Cocaine Metab Screen (LINMIX=533) U Marijuana (THC) Screen (CUTOFF=50) 10/23/18 10/23/18 Range/Units 22:12 22:12 WBC (3.98-10.04) K/mm3 RBC (3.98-5.22) M/mm3 Hgb (11.2-15.7) gm/L Hct (34.1-44.9) % MCV (79.4-94.8) fl MCH (25.6-32.2) pg MCHC (32.2-35.5) g/dl RDW Std Deviation (36.4-46.3) fL Plt Count (182-369) K/mm3 MPV (9.4-12.3) fl Neutrophils % (Manual) (40-60) % Band Neutrophils % (0-10) % Lymphocytes % (Manual) (20-40) % Atypical Lymphs % % Monocytes % (Manual) (2-10) % Eosinophils % (Manual) (0.7-5.8) % Basophils % (Manual) (0.1-1.2) Platelet Estimate RBC Morph Comment Sodium (136-145) mEq/L Potassium (3.5-5.1) mEq/L Chloride (98-107) mEq/L Carbon Dioxide (21-32) mEq/L Anion Gap (5-15) BUN (7-18) mg/dL Creatinine (0.55-1.02) mg/dL Est Cr Clr Drug Dosing mL/min Estimated GFR (MDRD) (>60) mL/min BUN/Creatinine Ratio (14-18) Glucose (74-106) mg/dL Calcium (8.5-10.1) mg/dL Total Bilirubin (0.2-1.0) mg/dL AST (15-37) U/L ALT (14-59) U/L Alkaline Phosphatase (46-116) U/L Troponin I (0.00-0.056) ng/mL C-Reactive Protein (<1.0) mg/dL Total Protein (6.4-8.2) g/dl Albumin (3.4-5.0) g/dl Globulin gm/dL Albumin/Globulin Ratio (1-2) HCG, Qual (NEGATIVE) Urine Color Yellow (Yellow) Urine Appearance Clear (Clear) Urine pH 6.5 (5.0-8.0) Ur Specific [place] > or = 1.030 (1.005-1.030) Urine Protein Trace H (Negative) Urine Glucose (UA) Negative (Negative) Urine Ketones Negative (Negative) Urine Occult Blood 2+ H (Negative) Urine Nitrite Negative (Negative) Urine Bilirubin Negative (Negative) Urine Urobilinogen 1.0 (0.2-1.0) Ur Leukocyte Esterase Negative (Negative) Urine RBC 0-5 (0-5) /hpf Urine WBC 0-5 (0-5) /hpf Ur Epithelial Cells 0-5 (0-5) /hpf Urine Bacteria Few (FEW) /hpf Urine Mucus Moderate H (FEW) /hpf Urine Opiates Screen Negative (PBPXGH=078) Ur Buprenorphine Scrn Negative (CUTOFF=10) Ur Oxycodone Screen Negative (WTU6SL=514) Urine Methadone Screen Negative (ORETJJ=088) Ur Propoxyphene Screen Negative (OUQMDO=465) Ur Barbiturates Screen Negative (BAZGGN=189) Ur Tricyclics Screen Negative (LKNJZQ=727) Ur Phencyclidine Scrn Negative (CUTOFF=25) Ur Amphetamine Screen Presumptive positive H (LVJKJV=387) U Methamphetamines Scrn Negative (NCIIYZ=343) U Benzodiazepines Scrn Negative (PLRMPY=570) U Cocaine Metab Screen Negative (BVEVWB=105) U Marijuana (THC) Screen Negative (CUTOFF=50) Meds: Medications Generic Name Dose Route Start Last Admin Trade Name Freq PRN Reason Stop Dose Admin Dextrose/Sodium Chloride 1,000 mls @ 999 mls/hr 10/23/18 21:00 10/23/18 21:12 Dextrose 5%-Normal Saline IV 999 mls/hr ASDIRECTED BOO Administration Discontinued Medications Generic Name Dose Route Start Last Admin Trade Name Freq PRN Reason Stop Dose Admin Lorazepam 1 mg 10/23/18 20:48 10/23/18 21:14 Ativan IVPUSH 10/23/18 20:49 1 mg ONETIME ONE Administration Ondansetron HCl 4 mg 10/23/18 21:07 10/23/18 21:17 Zofran IVPUSH 10/23/18 21:08 4 mg ONETIME ONE Administration - Radiology Interpretation Free Text/Narrative:: 28-year-old female presents to the ED after driving herself to the hospital . The there is some suggestion that she was found unresponsive beside her vehicle in a local gas station where she is hanging out. She doesn't remember what is happened to her how she ended up on the pavement. She has no outward signs of trauma suggesting that she did not have a significant fall. To the ground slowly oral she sat down simply and passed out. Ambient temperatures over 80 today. To using methamphetamine this morning about 0600 hrs. 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 She reports that she's been drinking water all day. She hasn't had much for food. She apparently was awakened by a passerby who is concerned. This scared her when she awoke and she identified that she developed trembling numbness and tingling in her hands and feet compatible with hyperventilation syndrome. Exam reveals a diffuse neurodermatitis from skin picking which the patient denies. She claims that she has a systemic candidiasis problem in her blood mouth vagina. At present she's complaining of a blackish discharge per vagina which is likely old menstrual blood. She was advised she conservative do a vaginal swab and will check it for bacterial vaginosis. At the time presentation the ED she is tachycardic at 1 30/ m 5 hyperventilating at 20-24/m with O2 sats of 99%. She is also hypertensive at 157/107. Plan routine labs to be done. Given D5 Ringer's lactate at open. Ativan 1 mg IV and Zofran 4 mg for nausea relief. ECG will be done as well. - Re-Assessments/Exams Free Text/Narrative Re-Assessment/Exam: 10/23/18 21:32 Blood pressure is improved to 140/91. Heart rate is still sinus tachycardia at 1 12/m. Sats are 98% on room air 10/23/18 22:39 Total white count is 9.21 with 62% neutrophils and no band cells reported. Hemoglobin is 15.1 with hematocrit of 44.1. MCV is 92.6. Platelet count normal 153,000. Sodium 141 with a potassium of 3.8. Chloride 106 bicarbonate 24. Anion gap is 14.8. BUN was 19 with a creatinine of 0.9. GFR remains greater than 60. BUN/creatinine ratio was 21.1. Glucose 138. Calcium 9.6. Liver function is normal. Troponin I is less than 0.017. C-reactive protein 1.0. Total protein is 7.5 with an albumin fraction of 3.9. Beta hCG was negative. Urinalysis shows 2+ occult blood but no sign of any infection. Urinalysis drug screen was presumptively positive for amphetamines. Departure - Departure Time of Disposition: 23:31 Disposition: Home, Self-Care 01 Condition: Fair Clinical Impression: Methamphetamine abuse Syncope Qualifiers: Encounter type: initial encounter - Discharge Information *PRESCRIPTION DRUG MONITORING PROGRAM REVIEWED*: Not Applicable *COPY OF PRESCRIPTION DRUG MONITORING REPORT IN PATIENT ALLAN: Not Applicable Referrals: Zara West NP [Primary Care Provider] - Forms: ED Department Discharge Additional Instructions: Evaluation the emergency room today in regards to possible syncopal event as you were found unresponsive lying beside her car at a local gas station where you were hanging out. You are aroused by passers by. He became scared as you did not remember what happened or how it got and to the ground. There is no signs of trauma to her head and neck or extremities. This suggests that he went down to the ground rather slowly versus an abrupt fall with injury. Not able to identify any abnormalities of your heart or blood pressure that would've caused her to pass out today. You were not significantly dehydrated. No metabolic abnormalities appreciated on lab work. No signs of underlying infection. Blood sugar was normal as well. It appears that you did develop a hyperventilation syndrome i.e. in response to coming very scared. Excessive breathing rate. You do develop numbness and tingling in her hands and feet and dizziness. Rate when you came into the ED was elevated at 130/min with normal being up to 100/m. You' re treated with intravenous fluids 1 L thinking that you might be volume depleted due to the heat exposure today. You are given medication Ativan 1 mg to bring the hyperventilation response under control and Zofran for nausea relief. Blood pressure came down to 122/74 normal and heart rate down to 81/m in response to the medications and the fluid. Vaginal cultures were obtained due to reported discharge per vagina. These will be available in about a day or so. At this time no further treatment is advised. No specific cause of reason for you to have passed out identified. No recent methamphetamine use can increase heart rate or create cardiac arrhythmias that could make you pass out but this was never identified while you're in the emergency department. Continue to maintain hydration. This means a combination of water and electrolyte such as juices or Gatorade/Powerade. - My Orders Last 24 Hours: My Active Orders 10/23/18 20:49 EKG Documentation Completion [RC] STAT 10/23/18 21:00 Dextrose 5%-0.9% NaCl [Dextrose 5%-Normal Saline] 1,000 ml IV ASDIRECTED 10/23/18 21:30 CULTURE GENITAL [RM] Stat - Assessment/Plan Last 24 Hours: My Active Orders 10/23/18 20:49 EKG Documentation Completion [RC] STAT 10/23/18 21:00 Dextrose 5%-0.9% NaCl [Dextrose 5%-Normal Saline] 1,000 ml IV ASDIRECTED 10/23/18 21:30 CULTURE GENITAL [RM] Stat
[2018-10-23] MEDS ORDERED: LORazepam 2 MG/ML SDV IVPUSH ONE (20:48)
[2018-10-23] MEDS ORDERED: Dextrose 5%-0.9% NaCl 1,000 ML IV SCH (21:00)
[2018-10-23] MEDS ORDERED: Ondansetron 4 MG/2 ML SDV IVPUSH ONE (21:07)
== END 2018-10-24 00:20 | disposition home or self-care (01) ==
LOC: JD.ED 20:19
DX: R55 Syncope and collapse (principal); F15.10 Other stimulant abuse, uncomplicated; K21.9 Gastro-esophageal reflux disease without esophagitis; Z79.899 Other long term (current) drug therapy
CPT/HCPCS: 36415; 80053; 80306; 81001; 84484; 84703; 85007; 85027; 86140; 87070; 93005; 96361; 96374; 96375; 99284; J2060; J2405; J7042; 93010